=== PATIENT | male | born 1990 | race Caucasian/White ===

== ENCOUNTER 2017-03-12 17:06 | Inpatient (IN) | payer OTHER ==
[~2017-03-12] VITALS: Ht 177.8 cm; Wt 52.1 kg
[2017-03-12] MEDS ORDERED: PARO20TA4 PO (17:42)
[2017-03-12] MEDS ORDERED: ATIV1TAB7 PO (17:42)
[2017-03-12] MEDS ORDERED: NICOTINE 21MG/24HR 1 EA TRANSDERMAL TD ONE (17:45)
[2017-03-12 18:02] LABS: MEAN CORPUSCULAR HEMOGLOBIN 33.2 pg (27.0-33.0); MEAN CORPUSCULAR HGB CONC 35.5 g/dl (32.0-36.5); MEAN CORPUSCULAR VOLUME 93.5 fl (80.0-96.0); RED CELL DISTRIBUTION WIDTH 13.3 % (11.5-14.5); WHITE BLOOD COUNT 9.2 K/mm3 (4.0-10.0)
[2017-03-12 18:11] LABS: METHADONE URINE NEGATIVE (NEGATIVE)
[2017-03-12 18:23] LABS: ALBUMIN 4.2 GM/DL (3.2-5.2); ALBUMIN/GLOBULIN RATIO 1.17 (1.00-1.93); ALKALINE PHOSPHATASE 82 U/L (45-117); ALT/SGPT 25 U/L (12-78); ANION GAP 9 MEQ/L (8-16); AST/SGOT 21 U/L (15-37); BILIRUBIN,DIRECT 0.2 MG/DL (0.0-0.2); BILIRUBIN,TOTAL 0.4 MG/DL (0.2-1.0); BLOOD UREA NITROGEN 6 MG/DL (7-18); CARBON DIOXIDE LEVEL 27 MEQ/L (21-32); CHLORIDE LEVEL 109 MEQ/L (98-107); CREATININE FOR GFR 0.96 MG/DL (0.70-1.30); GLOMERULAR FILTRATION RATE > 60.0 (>60); GLUCOSE, FASTING 102 MG/DL (70-105); POTASSIUM SERUM 3.9 MEQ/L (3.5-5.1); SODIUM LEVEL 145 MEQ/L (136-145); TOTAL PROTEIN 7.8 GM/DL (6.4-8.2)
--- NOTE | 2017-03-12 19:14 | REP ---
REASON: Assess for foreign body. COMPARISON: None. FINDINGS: The joint spaces are symmetric and relatively well maintained. There is no evidence of acute fracture or destructive osseous lesion. There is no evidence of a radiopaque foreign body. IMPRESSION: Negative hand. Signed by Ponce Mclaughlin DO 03/12/2017 07:51 P
[2017-03-13] MEDS ORDERED: LORazepam 1 MG TAB PO STA (00:34)
[2017-03-13] MEDS ORDERED: traZODone 50 MG TAB PO PRN (07:45)
[2017-03-13] MEDS ORDERED: MAALOX 30 ML SUSP *UDC PO PRN (07:45)
[2017-03-13] MEDS ORDERED: MOM 30ML SUSPENSION UDC PO PRN (07:45)
[2017-03-13 09:02] VITALS: BP 150/98
[2017-03-13] MEDS: NICOTINE 21MG/24HR 1 EA TRANSDERMAL TD SCH (10:02)
[2017-03-13] MEDS: MULTIVITAMINS/MINERALS THERAP 1 TAB PO SCH (10:02)
[2017-03-13] MEDS: FOLIC ACID 1 MG TAB PO SCH (10:02)
[2017-03-13] MEDS: THIAMINE 100 MG TAB PO SCH ×2 (10:03→20:46)
[2017-03-13] MEDS: LORazepam 2 MG TAB PO PRN ×2 (10:09→14:53)
--- NOTE | 2017-03-13 11:07 | HPEPDOC ---
Medical History and Physical Date of Admission Mar 13, 2017 at 04:54 History and Physical PCP: Cira Rodriguez. ATTENDING: Dr. Al Huddleston HPI: 26yoM admitted to [facility] for unspecified depressive disorder, being medically examined today. States he has had chronic neck pain. No radiation of pain down the arms. No weakness, numbness, or tingling in upper extremities. No injury reported. He does not report low back pain. No weakness, numbness, or tingling in lower extremities. Denies any fevers, chills, weakness, fatigue, LUCAS , CP, SOB, cough, palpitations, abdominal pain, N/V/D or changes in bowel or bladder habits. 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 Illicit Drugs: Denies IV Drug Use: Denies Tattoos done unprofessionally: Denies FAMHX: Mother: Alive, well Father: Unknown Siblings: Alive, well Children: None Unexpected deaths due to medical reasons: None. ROS: As noted in HPI, otherwise 11pt ROS of systems reviewed and unremarkable. PE: GEN: 26 yo M, appears stated age. Well-nourished, well developed. No acute distress. Alert and oriented x 3. Pleasant, interactive. HEENT: Normocephalic, atraumatic. Pupils are equal, round, and reactive to light. Extraocular movements are intact. No nystagmus appreciated. Sclera are nonicteric. Conjunctiva without injection. Nose midline. Nasal turbinates without bogginess. EACs both patent BL. TMs both visualized and zamorano with good cone of light, no bulging or erythema. No facial asymmetry. Moist mucous membranes. Dentition fair. Pharynx pink and moist, no cobblestoning. Neck supple , trachea midline. No lymphadenopathy or thyromegaly appreciated. CHEST: Regular rate and rhythm, +S1, +S2 LUNGS: Clear to auscultation bilaterally. No wheezes, rales, or rhonchi. Breathing appears symmetric and easy. Patient is speaking in full sentences. No accessory muscle use. ABD: Round, soft, non-tender, non-distended. +Bowel sounds throughout. No rebound or guarding. No costovertebral angle tenderness. EXT: Pulses 2+ bilaterally dorsalis pedis and radial. No lower extremity edema appreciated. SKIN: [place], dry, warm. Capillary refill <2sec. No rashes. There are abrasions noted on the forearms and right hand. 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 One on his right hand is related to putting his hand through a window. There is an ecchymotic area on the left lower back which she states is from falling at work. NEURO: Alert and oriented x 3. Cranial nerves III-XII are intact. No focal deficits appreciated. There is no tenderness with palpation over the cervical spine however mild tenderness is noted in the paraspinal muscles bilaterally. EKG: Pending. A&P: 26yoM admitted to [facility] for unspecified depressive disorder 1. Psych. Plan per Psychiatry. Obtain baseline EKG to assure the safety of psychiatric medications as they can prolong the QT interval. 2. Nicotine dependence. Patch available. 3. Chronic neck pain. Check x-ray of cervical spine. Continue Tylenol 650 mg every 6 hours as needed. Apply Lidoderm patch daily as needed. 4. Follow up with PCP on discharge. 5. Abrasions bilateral forearms. Apply Bactroban twice a day as needed. Dry dressing as needed. 6. Staff member Lex present on exam. Vital Signs Vital Signs Date Time Temp Pulse Resp B/P (MAP) Pulse Ox O2 Delivery O2 Flow Rate FiO2 03/13/17 09:02 100 150/98 03/13/17 08:35 98.1 16 97 Room Air Laboratory Data Labs 24H Laboratory Tests 2 03/12/17 17:38: Anion Gap 9, Glomerular Filtration Rate > 60.0, Calcium Level 9.0, Aspartate Amino Transf (AST/SGOT) 21, Alanine Aminotransferase (ALT/SGPT) 25, Alkaline Phosphatase 82, Total Bilirubin 0.4, Direct Bilirubin 0.2, Total Protein 7.8, Albumin 4.2, Albumin/Globulin Ratio 1.17, Thyroid Stimulating Hormone (TSH) 0.440, Salicylates Level < 1.7L, Urine Amphetamines Screen NEGATIVE, Urine Benzodiazepines Screen NEGATIVE, Urine Opiates Screen NEGATIVE, Urine Methadone Screen NEGATIVE, Acetaminophen Level < 2.0L, Urine Barbiturates Screen NEGATIVE , Urine Phencyclidine Screen NEGATIVE, Urine Cocaine Metabolite Screen NEGATIVE , Urine Cannabinoids Screen NEGATIVE, Ethyl Alcohol Level 0.265H CBC/BMP Laboratory Tests 03/12/17 17:38 Red Blood Count 5.24, Mean Corpuscular Volume 93.5, Mean Corpuscular Hemoglobin 33.2 H, Mean Corpuscular Hemoglobin Concent 35.5, Red Cell Distribution Width 13.3 Home Medications Scheduled Paroxetine Hydrochloride (Paroxetine) 20 Mg Tab, 20 MG PO DAILY Scheduled PRN Lorazepam (Ativan) 1 Mg Tab, 1 MG PO BID PRN for ANXIETY Allergies Coded Allergies: No Known Allergies (Unverified , 03/12/17) Maria Luisa Conti Mar 13, 2017 11:07
[2017-03-13] MEDS: LIDOCAINE 5% (LIDODERM) PATCH TD SCH (12:16)
[2017-03-13] MEDS: MUPIROCIN 2% OINT 22 GM TUBE TOP SCH ×2 (12:19→20:46)
[2017-03-13 14:00] VITALS: BP 150/90
[2017-03-13] MEDS: PARoxetine 10MG TABLET PO SCH (14:53)
--- NOTE | 2017-03-13 19:12 | REP ---
CERVICAL SPINE COMPLETE: 03/13/2017. Clinical history: Chronic neck pain. Findings: Nine views are provided. No prior study. Findings: Slight loss of the normal lordosis on the neutral view. Flexion and extension views show excellent range of motion but no instability. The C1-2 relationships were normal. The dens and lateral masses align normally. AP view shows no torticollis. The foramina are adequate on the left side with obliquity limiting evaluation of the upper most foramina on the right side. The C4-5 and below foramina are ample. No compression deformity, disc space narrowing or destructive bone lesion seen. No prevertebral swelling. Impression: 1. Slight straightening of the spine but excellent range of motion and no instability. Nothing acute. Signed by Tomas Augustin MD 03/14/2017 08:47 A
[2017-03-13] MEDS: **NOTE PATIENT COMMENT** MISC XX SCH (20:46)
[2017-03-14 06:30] VITALS: BP 139/92
[2017-03-14] MEDS: NICOTINE 21MG/24HR 1 EA TRANSDERMAL TD SCH (09:14)
[2017-03-14] MEDS: MUPIROCIN 2% OINT 22 GM TUBE TOP SCH ×2 (09:14→22:41)
[2017-03-14] MEDS: FOLIC ACID 1 MG TAB PO SCH (09:15)
[2017-03-14] MEDS: THIAMINE 100 MG TAB PO SCH ×2 (09:15→22:40)
[2017-03-14] MEDS: MULTIVITAMINS/MINERALS THERAP 1 TAB PO SCH (09:15)
[2017-03-14] MEDS: PARoxetine 10MG TABLET PO SCH (09:15)
[2017-03-14] MEDS: LIDOCAINE 5% (LIDODERM) PATCH TD SCH (09:15)
[2017-03-14 11:06] VITALS: BP 132/88
[2017-03-14 12:53] VITALS: BP 142/87
[2017-03-14 12:55] VITALS: BP 142/87
[2017-03-14] MEDS: LORazepam 2 MG TAB PO PRN (12:55)
--- NOTE | 2017-03-14 13:21 | MHHPE ---
DATE OF ADMISSION: 03/13/2017 CURRENT MEDICATIONS: - Paxil 20 mg every morning - Ativan 1 mg twice a day as needed CHIEF COMPLAINT: Suicidal ideation and threats. HISTORY OF PRESENT ILLNESS: This is a 26-year-old white male living by himself. 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 He sent text messages to his landlord that he was going to kill himself. His mother was contacted and reports that he had made threats about walking into the espino with a knife and stabbing himself. Patient had been in a bad relationship, which recently broke up. Patient has been drinking heavily. His blood alcohol level is high at 0.265. Patient minimizes his alcohol consumption. Patient had broken a window recently injuring his right hand. The landlord went to his apartment and found dried blood all over the apartment. Aside from the recent breakup, he denies any other psychosocial stressors. 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 He claims his appetite recently is good. His weight is stable. His concentration is fine. His level of energy is good on the job. He does have difficulty sleeping over the past 2 weeks since the breakup. He reports his self-esteem is good. He does have a history of possible panic attacks diagnosed and treated by his primary care physician. He has been on Paxil since the Fall of 2015. Patient avoids caffeinated beverages. He denies history of obsessive compulsive disorder (OCD) or posttraumatic stress disorder (PTSD). He denies phobic behavior. Patient may have had social phobic symptoms, however as a child. Patient does admit to seeing a therapist "Delphine" but then admits that he cancelled multiple appointments with her and has seen her only once. PAST PSYCHIATRIC HISTORY: Patient has never been hospitalized before. He was treated for some type of anxiety disorder as a teenager but is vague about it. He claims he grew out of it. He was treated with Cymbalta as a teenager but he had a possible allergic reaction where he had shortness of breath and passed out. MEDICAL HISTORY: Patient is healthy. ALLERGIES TO MEDICATIONS: Possibly CYMBALTA. LEGAL HISTORY: Patient denies. CHEMICAL DEPENDENCY: Patient does consume alcohol and he minimizes his consumption. He denies history of blackouts, delirium tremens (DTs) or seizures , but may be consuming more than he volunteers. He has never been in alcohol rehabilitation before. FAMILY PSYCHIATRIC HISTORY: Patient denies. SOCIAL HISTORY: Patient was born in [place], raised in [place]. He is a high school graduate. He has no college. 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 Patient's mother is remarried and lives in [place]. His father abandoned the family when he was age 9, and patient has not seen him since. Patient has two half siblings. Relationship with them is good. MENTAL STATUS EXAMINATION: Patient is alert and oriented. He is highly anxious with sweaty palms. He reports history of panic attacks. He is mildly depressed. He denies currently being suicidal. He has no suicidal plan. Insight and judgment appear fair. He is not psychotic. He is not hearing voices. No paranoia or thought disorder. Grooming and hygiene appear good. DIAGNOSIS: Adjustment disorder with depressed mood. Rule out major depression. Panic/anxiety disorder. Alcohol use disorder. PLAN: [facility] Protocol, staff to make collateral phone contact with family, therapist, etc. Confirm [phone], etc. MTDD
[2017-03-14 18:00] VITALS: BP 172/94
--- NOTE | 2017-03-14 19:55 | ECGEPIP ---
Stationary ECG Study [facility] Test Date: 2017-03-13 Pat Name: PHILIPP TOLENTINO Department: Room: [place] [address] Gender: M Rn Mds: : 1990 Requested By: Maria Luisa Conti Order Number: [id number] Reading MD: Abigail Warren Measurements Intervals [place] Rate: 114 P: 82 TX: 168 QRS: 93 QRSD: 106 T: 68 QT: 319 QTc: 439 Interpretive Statements SINUS TACHYCARDIA BORDERLINE RIGHT AXIS DEVIATION ABNORMAL RHYTHM ECG NO PRIOR Electronically Signed On 03-14-2017 19:55:02 EDT by Abigail Warren
[2017-03-14 20:15] VITALS: BP 172/94
[2017-03-14] MEDS: **NOTE PATIENT COMMENT** MISC XX SCH (21:00)
[2017-03-14] MEDS: traZODone 100 MG TAB PO PRN (22:40)
[2017-03-15 06:21] VITALS: BP 104/58
[2017-03-15 08:31] VITALS: BP 104/58
[2017-03-15] MEDS: NICOTINE 21MG/24HR 1 EA TRANSDERMAL TD SCH (09:01)
[2017-03-15] MEDS: MULTIVITAMINS/MINERALS THERAP 1 TAB PO SCH (09:01)
[2017-03-15] MEDS: PARoxetine 10MG TABLET PO SCH (09:01)
[2017-03-15] MEDS: LIDOCAINE 5% (LIDODERM) PATCH TD SCH (09:01)
[2017-03-15] MEDS: THIAMINE 100 MG TAB PO SCH ×2 (09:01→20:58)
[2017-03-15] MEDS: FOLIC ACID 1 MG TAB PO SCH (09:01)
[2017-03-15] MEDS: MUPIROCIN 2% OINT 22 GM TUBE TOP SCH ×2 (09:01→20:59)
--- NOTE | 2017-03-15 11:24 | MHIPN ---
DATE: 03/13/2017 VITAL SIGNS: Temperature 98.4. Pulse 92. Respirations 16. Blood pressure 139/92. CURRENT MEDICATION: - Paxil 30 mg every morning - trazodone 50 mg at bedtime as needed for sleep - thiamine 100 mg twice a day - folic acid 1 mg daily - multivitamins one tablet daily HISTORY OF PRESENT ILLNESS: The patient continues to minimize the events prior to admission. 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 The patient is confronted as so his alcoholism. The patient has required Ativan per the [facility] detox protocol. His blood pressure is also quite elevated, likely secondary to his alcoholism. The patient admits that he does drink heavily. He is willing to followup at a chemical dependency evaluation upon discharge. The patient has received several doses of the increased dose of Paxil. He is tolerating it well. He did not sleep well last night. He tossed and turned a lot. The patient slept in this morning all morning and is not seen at all after 12 noon. We discussed increasing his trazodone dosage, which he is agreeable to. His mother had called in requesting that I contact her. The patient is agreeable. He gives me permission to do so. According to the staff member who took her message, she was afraid that we would discharge her son prematurely. She is concerned that he has a serious condition that needs further hospitalization and treatment for. MENTAL STATUS EXAMINATION: The patient is alert, oriented and cooperative. He does appear quite anxious and edgy. He is restless. He is dysphoric. Mood is moderately depressed. He denies current suicidal thoughts. Insight appears fair. Judgment appears fair. No signs of psychosis. No current signs of dangerousness. Memory functions appear intact. DIAGNOSES: Major depression, recurrent. Panic/anxiety disorder. Alcohol use disorder. PLAN: Continue medications and the milieu therapy. Increase trazodone to 100 mg at bedtime for sleep. The patient encouraged to not sleep all morning, but to active and involved in participating with group activities, etc. Continue [facility] protocol.
[2017-03-15] MEDS: LORazepam 1 MG TAB PO PRN ×2 (16:15→21:00)
[2017-03-15 18:00] VITALS: BP 119/67
[2017-03-15] MEDS: **NOTE PATIENT COMMENT** MISC XX SCH (20:58)
[2017-03-15] MEDS: traZODone 100 MG TAB PO PRN (20:58)
[2017-03-16 06:52] VITALS: BP 125/58
[2017-03-16] MEDS: MULTIVITAMINS/MINERALS THERAP 1 TAB PO SCH (08:09)
[2017-03-16] MEDS: MUPIROCIN 2% OINT 22 GM TUBE TOP SCH ×2 (08:09→21:01)
[2017-03-16] MEDS: FOLIC ACID 1 MG TAB PO SCH (08:09)
[2017-03-16] MEDS: NICOTINE 21MG/24HR 1 EA TRANSDERMAL TD SCH (08:09)
[2017-03-16] MEDS: PARoxetine 10MG TABLET PO SCH (08:09)
[2017-03-16] MEDS: THIAMINE 100 MG TAB PO SCH (08:10)
[2017-03-16] MEDS: LIDOCAINE 5% (LIDODERM) PATCH TD SCH (08:10)
[2017-03-16] MEDS: LORazepam 0.5 MG TAB PO PRN (14:13)
[2017-03-16 18:00] VITALS: BP 138/88
[2017-03-16] MEDS: traZODone 100 MG TAB PO PRN (21:00)
[2017-03-16] MEDS: **NOTE PATIENT COMMENT** MISC XX SCH (21:06)
[2017-03-16] MEDS: ACETAMINOPHEN TAB 650MG DOSE (2X325MG) PO PRN (21:06)
[2017-03-17 07:06] VITALS: BP 149/82
[2017-03-17] MEDS: MUPIROCIN 2% OINT 22 GM TUBE TOP SCH ×2 (08:06→21:00)
[2017-03-17] MEDS: FOLIC ACID 1 MG TAB PO SCH (08:06)
[2017-03-17] MEDS: PARoxetine 10MG TABLET PO SCH (08:06)
[2017-03-17] MEDS: MULTIVITAMINS/MINERALS THERAP 1 TAB PO SCH (08:06)
[2017-03-17] MEDS: LIDOCAINE 5% (LIDODERM) PATCH TD SCH (08:06)
[2017-03-17] MEDS: NICOTINE 21MG/24HR 1 EA TRANSDERMAL TD SCH (08:06)
[2017-03-17] MEDS: LORazepam 0.5 MG TAB PO PRN ×2 (12:28→17:20)
--- NOTE | 2017-03-17 14:34 | MHIPN ---
DATE: 03/13/2017 VITAL SIGNS: Temperature 97.4, pulse 68, respirations 16, blood pressure 104/58. CURRENT MEDICATIONS: -Paxil 30 mg every morning -trazodone 100 mg at bedtime as needed HISTORY OF PRESENT ILLNESS: Patient spent all morning in bed again. He is warned about this. He did go to a few groups yesterday evening. Patient again is agitating to get discharged so that he can go to [facility] weekend. This is a big green party scene and with his alcoholism history this would not be recommended. His mother had called in also supporting prolonging his hospital stay. Patient's blood pressure is starting to come down to a normal range. His appetite is good. He reports sleeping better at night. Patient states that his concentration is improving. Mental status exam. Anxiety is not in the moderate range. Depression and mild to moderate range. He is no suicidal, not homicidal. No signs of psychosis. Grooming and hygiene appears good. DIAGNOSES: Major depression, recurrent. Panic anxiety disorder. Alcohol use disorder. PLAN: Continue the current psychotropics. Patient encouraged to be involved with hospital therapeutic activities. Patient informed of my leaving the [facility] and there will be a new doctor taking over his care on Saturday.
[2017-03-17] MEDS: ACETAMINOPHEN TAB 650MG DOSE (2X325MG) PO PRN (17:21)
[2017-03-17 18:00] VITALS: BP 137/70
[2017-03-17] MEDS: **NOTE PATIENT COMMENT** MISC XX SCH (21:00)
[2017-03-17] MEDS: traZODone 100 MG TAB PO PRN (21:08)
[2017-03-18 06:25] VITALS: BP 124/68
--- NOTE | 2017-03-18 08:12 | MHIPN ---
DATE: 03/13/2017 CHIEF COMPLAINT: Says feels better. SUBJECTIVE: Seen for followup. Indicates feels better, and that he is less anxious, says inside "takes on life decisions", including following up with mental health. Denies any desires to drink, feels he is "done with it". MENTAL STATUS EXAMINATION: He is neat. He is cooperative. No agitation. No psychomotor retardation. Affect broad. Denies any thoughts of harming himself or anyone else. Currently no evidence of any psychosis. Cognition is grossly intact. Judgment and insight are fair. VITAL SIGNS: Blood pressure 125/58. Pulse 77. Temperature 97.9. PLAN: Continue current care and observations, including the Paxil at 30 mg daily. He tends to minimize his difficulties and has limited insight into his misuse of alcohol. He is to be encouraged to participate in activities in the unit per the recommendations made depending on the clinical picture.
[2017-03-18] MEDS: LIDOCAINE 5% (LIDODERM) PATCH TD SCH (08:57)
[2017-03-18] MEDS: NICOTINE 21MG/24HR 1 EA TRANSDERMAL TD SCH (08:57)
[2017-03-18] MEDS: MULTIVITAMINS/MINERALS THERAP 1 TAB PO SCH (08:58)
[2017-03-18] MEDS: FOLIC ACID 1 MG TAB PO SCH (08:58)
[2017-03-18] MEDS: MUPIROCIN 2% OINT 22 GM TUBE TOP SCH ×2 (08:58→21:15)
[2017-03-18] MEDS: PARoxetine 10MG TABLET PO SCH (08:58)
--- NOTE | 2017-03-18 16:51 | MHIPNPDOC ---
[facility] Progress Note Progress Note DATE OF SERVICE: 03/18/17 HISTORY: Patient was seen and evaluated for his progress in inpatient unit. He reported feeling better with the current treatment and has been able to participate in the unit activities and interacted with others in the unit. He denies feeling nervous or anxious recently and grades His depression as 2 out of 10 compared to 8 out of 10 when he was admitted to inpatient unit. He denies any suicidal or homicidal ideations, but seems to be minimizing his alcohol use. He did accept that when he drinks alcohol, He feels more down and starts thinking about suicidal ideas. He reported that the blood stains found in his apartment there because of injury to his hand that was not related to self- injurious behavior or any suicidal attempt. He reported that his ex-boyfriend was alcoholic and because of him. He also drank quite a bit, but after broken up with him, He wants to stop using alcohol. When offered to go for outpatient substance abuse treatment. He did accept that and he denies any other substance abuse. Sleeping and eating well. Denies any hallucinations or paranoia. VITAL SIGNS: See below. CURRENT MEDICATIONS: -Paxil 30 mg every morning -trazodone 100 mg at bedtime as needed MENTAL STATUS EXAMINATION: 26yo male sitting in the chair, looks appropriate for the stated age, fair hygiene and grooming, cold patch on the back of the neck, normal psychomotor activities, no abnormal movements, cooperative with fair eye contact, speech is normal in rate, rhythm, amount and prosody, mood is 'fine', affect full and mood congruent, thought process is logical and goal directed, denies suicidal and homicidal ideations, denies hallucinations, no delusions elicited, aaox3, fair immediate, short term and intermediate card tender memory, limited insight, judgement and fair impulse control DIAGNOSES: 1. Major depression versus alcohol-induced mood disorder. ASSESSMENT: Patient seems to be improving with current treatment. Discharge planning in progress MANAGEMENT PLAN: Possible increase in Paxil to optimize the dose. TIME SPENT: To 15 minutes. Vital Signs Vital Signs Date Time Temp Pulse Resp B/P (MAP) Pulse Ox O2 Delivery O2 Flow Rate FiO2 03/18/17 06:25 98.1 102 16 124/68 (86) Room Air 03/13/17 08:35 97 Current Medications Allergies Coded Allergies: No Known Allergies (Unverified , 03/12/17) HANNAH BLAKC MD Mar 18, 2017 16:51
[2017-03-18 18:00] VITALS: BP 144/86
[2017-03-18] MEDS: traZODone 100 MG TAB PO PRN (21:15)
[2017-03-18] MEDS: **NOTE PATIENT COMMENT** MISC XX SCH (21:15)
--- NOTE | 2017-03-18 21:45 | MHIPN ---
DATE: 03/17/2017 CHIEF COMPLAINT: Feels good. SUBJECTIVE: Seen for followup in the presence of staff. He says he feels good; in fact, suggests he feels "awesome" and that moods are good. He feels that he should return to work, says he finds himself restless when he is not working. Denies any cravings for alcohol or anything else. MENTAL STATUS EXAM: Neat and cooperative. He is coherent. No agitation. No psychomotor retardation. Affect is broad. He denies any thoughts of harming himself or anyone else. No evidence of any psychosis. Cognition is grossly intact. Judgment and insight are also improved. ASSESSMENT: Major depressive disorder. Alcohol use disorder. PLAN: Continue current care and observations, continue encouraging participation in frias activities. He will be seeing his assigned psychiatrist tomorrow, and the rest of the treatment team, and he was made aware that they will look at discharge planning. I anticipate him being discharged soon.
[2017-03-19 07:33] VITALS: BP 120/67
[2017-03-19] MEDS: NICOTINE 21MG/24HR 1 EA TRANSDERMAL TD SCH (08:11)
[2017-03-19] MEDS: PARoxetine 10MG TABLET PO SCH (08:11)
[2017-03-19] MEDS: LIDOCAINE 5% (LIDODERM) PATCH TD SCH (08:15)
[2017-03-19] MEDS: MULTIVITAMINS/MINERALS THERAP 1 TAB PO SCH (08:15)
[2017-03-19] MEDS: MUPIROCIN 2% OINT 22 GM TUBE TOP SCH ×2 (08:17→20:45)
[2017-03-19] MEDS: FOLIC ACID 1 MG TAB PO SCH (08:17)
[2017-03-19] MEDS: ACETAMINOPHEN TAB 650MG DOSE (2X325MG) PO PRN ×2 (16:30→22:38)
--- NOTE | 2017-03-19 17:49 | MHIPNPDOC ---
[facility] Progress Note Progress Note DATE OF SERVICE: 03/19/17 HISTORY: The patient was seen and evaluated for his progress in the inpatient unit. On evaluation, patient reported that he has been feeling better and denies any depression anymore. He reported that his anxiety is also under more control and has been sleeping better. He reported that after getting discharged from the inpatient unit. He is willing to go for outpatient substance use treatment and also willing to follow up for outpatient psychiatry treatment. He currently denies any suicidal or homicidal ideations. He also denies any anger, agitation or aggressive behavior. He is willing to work with the discharge planners to arrange for his follow-ups outpatient sleeping and eating well. VITAL SIGNS: See below. CURRENT MEDICATIONS: -Paxil 30 mg every morning -trazodone 100 mg at bedtime as needed MENTAL STATUS EXAMINATION: 26yo male sitting in the chair, looks appropriate for the stated age, fair hygiene and grooming, cold patch on the back of the neck, normal psychomotor activities, no abnormal movements, cooperative with fair eye contact, speech is normal in rate, rhythm, amount and prosody, mood is 'fine', affect full and mood congruent, thought process is logical and goal directed, denies suicidal and homicidal ideations, denies hallucinations, no delusions elicited, aaox3, fair immediate, short term and joint terminal attack controller memory, limited insight, judgement and fair impulse control DIAGNOSES: 1. Major depression versus alcohol-induced mood disorder. ASSESSMENT: Patient improving on current treatment. Discharge planning in progress MANAGEMENT PLAN:. Continue current treatment. TIME SPENT:. 15 minutes. Vital Signs Vital Signs Date Time Temp Pulse Resp B/P (MAP) Pulse Ox O2 Delivery O2 Flow Rate FiO2 03/19/17 07:33 98.2 77 16 120/67 (84) 03/18/17 06:25 Room Air 03/13/17 08:35 97 Allergies Coded Allergies: No Known Allergies (Unverified , 03/12/17) HANNAH BLACK MD Mar 19, 2017 17:48
[2017-03-19 18:00] VITALS: BP 128/82
[2017-03-19] MEDS: **NOTE PATIENT COMMENT** MISC XX SCH (20:46)
[2017-03-19] MEDS: traZODone 100 MG TAB PO PRN (22:06)
[2017-03-20 07:04] VITALS: BP 130/77
[2017-03-20] MEDS: LIDOCAINE 5% (LIDODERM) PATCH TD SCH (08:22)
[2017-03-20] MEDS: PARoxetine 10MG TABLET PO SCH (08:22)
[2017-03-20] MEDS: FOLIC ACID 1 MG TAB PO SCH (08:22)
[2017-03-20] MEDS: MULTIVITAMINS/MINERALS THERAP 1 TAB PO SCH (08:22)
[2017-03-20] MEDS: MUPIROCIN 2% OINT 22 GM TUBE TOP SCH (08:23)
[2017-03-20] MEDS: NICOTINE 21MG/24HR 1 EA TRANSDERMAL TD SCH (08:34)
[2017-03-20] MEDS ORDERED: TRAZ10TA PO (09:17)
[2017-03-20] MEDS ORDERED: FOLI1TAB4 PO (09:17)
[2017-03-20] MEDS ORDERED: PARO30TA3 PO (09:17)
[2017-03-20] MEDS ORDERED: VITMTA PO (09:17)
--- NOTE | 2017-03-20 09:29 | MHDSPDOC ---
[facility] Discharge Summary Discharge Summary DATE OF ADMISSION: Mar 13, 2017 at 04:54 DATE OF DISCHARGE: 03/20/17 DISCHARGE DIAGNOSES: 1. Major depression versus alcohol-induced mood disorder. 2.. Anxiety disorder. REASON FOR ADMISSION:, Suicide attempt, self-injurious behavior, depression, alcohol abuse from H&P: "HISTORY OF PRESENT ILLNESS: This is a 26-year-old white male living by himself. 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 He sent text messages to his landlord that he was going to kill himself. His mother was contacted and reports that he had made threats about walking into the [place] with a knife and stabbing himself. Patient had been in a bad relationship, which recently broke up. Patient has been drinking heavily. His blood alcohol level is high at 0.265. Patient minimizes his alcohol consumption. Patient had broken a window recently injuring his right hand. The landlord went to his apartment and found dried blood all over the apartment. Aside from the recent breakup, he denies any other psychosocial stressors. 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 He claims his appetite recently is good. His weight is stable. His concentration is fine. His level of energy is good on the job. He does have difficulty sleeping over the past 2 weeks since the breakup. He reports his self-esteem is good. He does have a history of possible panic attacks diagnosed and treated by his primary care physician. He has been on Paxil since the Fall of 2015. Patient avoids caffeinated beverages. He denies history of obsessive compulsive disorder (OCD) or posttraumatic stress disorder (PTSD). He denies phobic behavior. Patient may have had social phobic symptoms, however as a child. Patient does admit to seeing a therapist "Delphine" but then admits that he cancelled multiple appointments with her and has seen her only once. PAST PSYCHIATRIC HISTORY: Patient has never been hospitalized before. He was treated for some type of anxiety disorder as a teenager but is vague about it. He claims he grew out of it. He was treated with Cymbalta as a teenager but he had a possible allergic reaction where he had shortness of breath and passed out. MEDICAL HISTORY: Patient is healthy. ALLERGIES TO MEDICATIONS: Possibly CYMBALTA. LEGAL HISTORY: Patient denies. CHEMICAL DEPENDENCY: Patient does consume alcohol and he minimizes his consumption. He denies history of blackouts, delirium tremens (DTs) or seizures , but may be consuming more than he volunteers. He has never been in alcohol rehabilitation before. FAMILY PSYCHIATRIC HISTORY: Patient denies." CONSULTANTS INVOLVED: None TREATMENT AND PROGRESS ON THE UNIT :. Patient was admitted to inpatient psychiatry unit and started on CIWA protocol for alcohol withdrawal. He initially was minimizing all the symptoms but later reported that yes he was having blood stains in his apartment because he was bleeding and he was depressed recently with suicidal thoughts. Initially he was not able to participate in any of the unit activities that he responded well to treatment and able to participate in the activities as well as interact with others in the unit initially. He continued to have suicidal ideations, which faded away over the time. He continued to minimize his alcohol use, but was willing to go for any substance use treatment After the discharge for which he will be referred to outpatient substance abuse treatment programs. HOSPITAL COURSE: He was started on CIWA protocol for alcohol withdrawal, Paxil for his depression and anxiety and trazodone for his sleep problems. He was also receiving therapy and milieu treatment in the unit. MENTAL STATUS EXAMINATION ON DISCHARGE: Patient is alert and oriented. speech is normal in rate, rhythm, amount & prosody. He denies currently being suicidal. He has no suicidal plan. Insight and judgment appear fair. He is not psychotic. He denies hearing voices. No paranoia or thought disorder. Grooming and hygiene appear good. MEDICATIONS ON DISCHARGE: Paxil 30mg QAM & Trazodone 50mg QHS PRN for sleep problems. PLAN/FOLLOWUP ARRANGEMENTS: Patient to follow up outpatient for medication management and psychotherapy. Patient to be referred for outpatient substance use treatment. Also. The amount of time spent in the coordination of care for this patient was approximately, 30 minutes. Vital Signs/I&Os Vital Signs Date Time Temp Pulse Resp B/P (MAP) Pulse Ox O2 Delivery O2 Flow Rate FiO2 03/20/17 07:04 98.2 83 16 130/77 (94) 03/19/17 18:00 Room Air Medications Scheduled (Paroxetine) 30 Mg Tab, 30 MG PO QAM for depression anxiety for 30 Days, #30 Folic Acid (Folic Acid) 1 Mg Tab, 1 MG PO DAILY for deficiency for 30 Days, #30 Multivitamins *[facility] STOCKED* (Thera M Plus *[facility] STOCKED*) 1 Tab Tab, 1 TAB PO DAILY for deficiency for 30 Days, #30 Paroxetine Hydrochloride (Paroxetine) 20 Mg Tab, 20 MG PO DAILY, (Reported) Scheduled PRN Lorazepam (Ativan) 1 Mg Tab, 1 MG PO BID PRN for ANXIETY, (Reported) Trazodone HCl (Trazodone HCl) 100 Mg Tab, 100 MG PO QHSP PRN for INSOMNIA for 30 Days, #30 Allergies Coded Allergies: No Known Allergies (Unverified , 03/12/17) HANNAH BLACK MD Mar 20, 2017 09:29
== END 2017-03-20 11:20 | disposition home or self-care (01) | DRG 751 ==
LOC: M ED 17:06 → M ED INP 03-13 04:54 → M PSY 03-13 08:45
PROVIDERS: ADMIT Psychiatry & Neurology Psychiatry; ATTEND Psychiatry & Neurology Psychiatry
DX: F33.9 Major depressive disorder, recurrent, unspecified (principal); F41.9 Anxiety disorder, unspecified; F10.14 Alcohol abuse with alcohol-induced mood disorder; M54.2 Cervicalgia; Z63.0 Problems in relationship with spouse or partner; Z88.8 Allergy status to other drugs, medicaments and biological substances; Z79.899 Other long term (current) drug therapy

== ENCOUNTER 2017-03-21 08:08 | Emergency (ER) | payer OTHER ==
[~2017-03-21] VITALS: Ht 188 cm; Wt 56.8 kg
[~2017-03-21 08:08] MED LIST: ATIV1TAB7 PO; FOLI1TAB4 PO; PARO20TA4 PO; PARO30TA3 PO; TRAZ10TA PO; VITMTA PO
[2017-03-21 16:24] VITALS: BP 136/83
== END 2017-03-21 16:25 | disposition home or self-care (01) ==
LOC: EDSEX 08:08 → M ED 08:08 → EDBD 08:08 → M ED 16:25
DX: F10.120 Alcohol abuse with intoxication, uncomplicated (principal); R45.1 Restlessness and agitation; Z79.899 Other long term (current) drug therapy

== ENCOUNTER 2017-04-14 01:41 | Inpatient (IN) | payer OTHER ==
[~2017-04-14] VITALS: Ht 177.8 cm; Wt 56.8 kg
[2017-04-14 02:32] LABS: MEAN CORPUSCULAR HEMOGLOBIN 33.8 pg (27.0-33.0); MEAN CORPUSCULAR VOLUME 91.9 fl (80.0-96.0); RED CELL DISTRIBUTION WIDTH 12.3 % (11.5-14.5); WHITE BLOOD COUNT 5.5 K/mm3 (4.0-10.0)
[2017-04-14 02:48] LABS: METHADONE URINE NEGATIVE (NEGATIVE)
[2017-04-14 03:00] LABS: ALBUMIN 4.1 GM/DL (3.2-5.2); ALBUMIN/GLOBULIN RATIO 1.24 (1.00-1.93); ALKALINE PHOSPHATASE 70 U/L (45-117); ALT/SGPT 26 U/L (12-78); ANION GAP 4 MEQ/L (8-16); AST/SGOT 23 U/L (15-37); BILIRUBIN,DIRECT 0.1 MG/DL (0.0-0.2); BILIRUBIN,TOTAL 0.3 MG/DL (0.2-1.0); BLOOD UREA NITROGEN 5 MG/DL (7-18); CALCIUM LEVEL 8.6 MG/DL (8.5-10.1); CARBON DIOXIDE LEVEL 34 MEQ/L (21-32); CHLORIDE LEVEL 107 MEQ/L (98-107); CREATININE FOR GFR 0.88 MG/DL (0.70-1.30); GLOMERULAR FILTRATION RATE > 60.0 (>60); GLUCOSE, FASTING 113 MG/DL (70-105); SODIUM LEVEL 145 MEQ/L (136-145); TOTAL PROTEIN 7.4 GM/DL (6.4-8.2)
[2017-04-14 03:15] LABS: MEAN CORPUSCULAR HGB CONC 36.4 g/dl (32.0-36.5)
[2017-04-14] MEDS ORDERED: MULTIVITAMINS/MINERALS THERAP 1 TAB PO ONE (08:45)
[2017-04-14] MEDS ORDERED: FOLIC ACID 1 MG TAB PO ONE (08:45)
[2017-04-14] MEDS ORDERED: PARoxetine 10MG TABLET PO ONE (08:45)
[2017-04-14] MEDS ORDERED: OXAZEPAM 15 MG CAP PO ONE (14:15)
[2017-04-14] MEDS ORDERED: VITMTA PO (14:49)
[2017-04-14] MEDS ORDERED: PARO30TA PO (14:49)
[2017-04-14] MEDS ORDERED: TRAZ-136 PO (14:49)
[2017-04-14] MEDS ORDERED: FOLI1TAB4 PO (14:49)
[2017-04-14] MEDS ORDERED: MOM 30ML SUSPENSION UDC PO PRN (19:30)
[2017-04-14] MEDS ORDERED: MAALOX 30 ML SUSP *UDC PO PRN (19:30)
[2017-04-14] MEDS ORDERED: OXAZEPAM 15 MG CAP PO PRN (19:30)
[2017-04-14] MEDS: NICOTINE 21MG/24HR 1 EA TRANSDERMAL TD SCH (20:12)
[2017-04-14] MEDS: ACETAMINOPHEN TAB 650MG DOSE (2X325MG) PO PRN (21:21)
[2017-04-14] MEDS: traZODone 100 MG TAB PO PRN (21:21)
--- NOTE | 2017-04-15 04:17 | HPE ---
DATE OF ADMISSION: 04/14/2017 HISTORY OF PRESENT ILLNESS: Please refer to psychiatric history and evaluation for further details on this admission. This examination and history is intended for medical issues, which may need treatment, followup or consult on this 26-year-old male. ALLERGIES: No known drug allergies. PRIMARY CARE PROVIDER: He goes to the [facility]. PAST MEDICAL HISTORY: 1. Chronic neck pain. 2. Anxiety. 3. Depression. PAST SURGICAL HISTORY: Negative. SOCIAL HISTORY: He is single, works at a [employer] shop, very rarely wears shorts. He uses a vapor cigarette. He denies illicit drug use or intravenous (IV) drug use. FAMILY HISTORY: Mother alive and well. Father unknown. Siblings alive and well. Children unknown. REVIEW OF SYSTEMS: 10-system review was done and other than chronic back pain was negative. Patient had no complaints. LABORATORY STUDIES: WBC 5.5, hemoglobin 16.9, hematocrit 46.4, platelets 224. Sodium 145, potassium 4.0, chloride 107, CO2 34, BUN 5, creatinine 0.88. Ethyl alcohol (EtOH) was 0.283. MEDICATIONS: - folic acid 1 mg by mouth daily - Multivite one daily - paroxetine 30 mg by mouth daily - trazodone 100 mg by mouth daily PHYSICAL EXAMINATION: 26-year-old cooperative male in no acute distress. Blood pressure stable. Height 70 inches, weight 56.8 kg, body mass index (BMI) 18. In no acute distress. Vital signs are stable. Patient is alert and oriented times three. Pupils equal and react to light. Extraocular muscles intact. Cornea and sclerae clear. Conjunctivae were normal. No facial asymmetry. Pharynx, tongue and gums pink and moist. Tongue is midline. Neck is supple without lymphadenopathy. No thyromegaly, no goiter. Carotids 2+ without bruit. Chest clear to auscultation without wheeze or retraction. Heart is regular. Abdomen is benign. Bowel sounds positive. Genitourinary/rectal: Not done. Extremities show equal strength, full range of motion. No cyanosis, clubbing or edema. Peripheral pulses equal and palpable bilaterally. Skin is warm and dry. IMPRESSION/PLAN: Psychiatric plan per psychiatry. No acute medical issues.
[2017-04-15 06:37] VITALS: BP 122/64
[2017-04-15] MEDS: FOLIC ACID 1 MG TAB PO SCH (08:10)
[2017-04-15] MEDS: MULTIVITAMINS/MINERALS THERAP 1 TAB PO SCH (08:10)
[2017-04-15] MEDS: NICOTINE 21MG/24HR 1 EA TRANSDERMAL TD SCH (08:11)
[2017-04-15] MEDS: PARoxetine 10MG TABLET PO SCH (08:11)
[2017-04-15 12:01] VITALS: BP 141/94
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
[2017-04-15 18:00] VITALS: BP 140/83
[2017-04-15] MEDS: ACETAMINOPHEN TAB 650MG DOSE (2X325MG) PO PRN (18:28)
[2017-04-15] MEDS: traZODone 100 MG TAB PO PRN (22:24)
[2017-04-16 06:25] VITALS: BP 104/58
[2017-04-16] MEDS: NICOTINE 21MG/24HR 1 EA TRANSDERMAL TD SCH (08:34)
[2017-04-16] MEDS: FOLIC ACID 1 MG TAB PO SCH (08:34)
[2017-04-16] MEDS: PARoxetine 10MG TABLET PO SCH (08:34)
[2017-04-16] MEDS: MULTIVITAMINS/MINERALS THERAP 1 TAB PO SCH (08:34)
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
[2017-04-16 12:00] VITALS: BP 131/80
[2017-04-16] MEDS: ACETAMINOPHEN TAB 650MG DOSE (2X325MG) PO PRN ×2 (15:53→22:33)
[2017-04-16 18:00] VITALS: BP 119/65
[2017-04-16] MEDS: traZODone 100 MG TAB PO PRN (22:32)
[2017-04-17 06:49] VITALS: BP 98/56
[2017-04-17] MEDS: PARoxetine 10MG TABLET PO SCH (08:34)
[2017-04-17] MEDS: NICOTINE 21MG/24HR 1 EA TRANSDERMAL TD SCH (08:34)
[2017-04-17] MEDS: FOLIC ACID 1 MG TAB PO SCH (08:34)
[2017-04-17] MEDS: MULTIVITAMINS/MINERALS THERAP 1 TAB PO SCH (08:34)
[2017-04-17] MEDS ORDERED: TRAZ10TA PO (09:19)
[2017-04-17] MEDS ORDERED: PARO30TA PO (09:19)
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
== END 2017-04-17 13:15 | disposition home or self-care (01) | DRG 754 ==
LOC: M ED 01:41 → M ED INP 15:53 → M PSY 17:49
PROVIDERS: ADMIT Psychiatry & Neurology Psychiatry; ATTEND Psychiatry & Neurology Child & Adolescent Psychiatry
DX: F43.21 Adjustment disorder with depressed mood (principal); F10.129 Alcohol abuse with intoxication, unspecified; Z79.899 Other long term (current) drug therapy; M54.2 Cervicalgia

== ENCOUNTER 2017-08-13 23:13 | Emergency (ER) | payer OTHER ==
[2017-08-14 01:25] LABS: AMPHETAMINES LEVEL URINE NEGATIVE (NEGATIVE); BARBITURATES URINE NEGATIVE (NEGATIVE); BENZODIAZEPINES URINE NEGATIVE (NEGATIVE); CANNABINOIDS URINE NEGATIVE (NEGATIVE); COCAINE METABOLITE URINE NEGATIVE (NEGATIVE); METHADONE URINE NEGATIVE (NEGATIVE); OPIATES URINE NEGATIVE (NEGATIVE); PHENCYCLIDINE URINE NEGATIVE (NEGATIVE)
[2017-08-14 01:29] LABS: HEMATOCRIT 49.1 % (42.0-52.0); HEMOGLOBIN 17.9 g/dl (14.0-18.0); MEAN CORPUSCULAR HEMOGLOBIN 32.8 pg (27.0-33.0); MEAN CORPUSCULAR HGB CONC 36.5 g/dl (32.0-36.5); MEAN CORPUSCULAR VOLUME 89.9 fl (80.0-96.0); PLATELET COUNT, AUTOMATED 256 10^3/uL (150-450); RED BLOOD COUNT 5.46 10^6/uL (4.30-6.10); RED CELL DISTRIBUTION WIDTH 12.5 % (11.5-14.5); WHITE BLOOD COUNT 6.6 10^3/uL (4.0-10.0)
[2017-08-14 01:52] LABS: ALT/SGPT 40 U/L (12-78); ANION GAP 8 MEQ/L (8-16); CALCIUM LEVEL 8.6 MG/DL (8.5-10.1); CARBON DIOXIDE LEVEL 31 MEQ/L (21-32); CHLORIDE LEVEL 107 MEQ/L (98-107); CREATININE FOR GFR 0.93 MG/DL (0.70-1.30); GLOMERULAR FILTRATION RATE > 60.0 (>60); GLUCOSE, FASTING 128 MG/DL (70-105); SODIUM LEVEL 146 MEQ/L (136-145)
[2017-08-14 01:53] LABS: ACETAMINOPHEN LEVEL < 2.0 UG/ML (10.0-30.0); ALBUMIN 4.5 GM/DL (3.2-5.2); ALBUMIN/GLOBULIN RATIO 1.36 (1.00-1.93); ALKALINE PHOSPHATASE 95 U/L (45-117); ETHYL ALCOHOL (ETHANOL) 0.383 % (0.000-0.010); SALICYLATE LEVEL < 1.7 MG/DL (5.0-30.0); THYROID STIMULATING HORMONE 0.857 uIU/ML (0.358-3.740); TOTAL PROTEIN 7.8 GM/DL (6.4-8.2)
[2017-08-14 01:59] LABS: BLOOD UREA NITROGEN 9 MG/DL (7-18)
[2017-08-14 02:02] LABS: AST/SGOT 75 U/L (7-37); BILIRUBIN,DIRECT 0.2 MG/DL (0.0-0.2); BILIRUBIN,TOTAL 0.5 MG/DL (0.2-1.0)
[2017-08-14] MEDS: DERMABOND TOPICAL SKIN ADHESIVE TOP (02:52)
[2017-08-14] MEDS: NICOTINE 21MG/24HR 1 EA TRANSDERMAL TD (09:20)
== END 2017-08-14 12:15 | disposition home or self-care (01) ==
LOC: M ED 23:13
DX: Z04.6 Encounter for general psychiatric examination, requested by authority (principal); F10.129 Alcohol abuse with intoxication, unspecified; S01.81XA Laceration without foreign body of other part of head, initial encounter; X58.XXXA Exposure to other specified factors, initial encounter; Y92.89 Other specified places as the place of occurrence of the external cause; Z87.891 Personal history of nicotine dependence; F33.9 Major depressive disorder, recurrent, unspecified
CPT/HCPCS: 70450

== ENCOUNTER 2021-07-07 12:51 | Emergency (ER) | payer OTHER ==
[~2021-07-07] VITALS: Ht 177.8 cm; Wt 54.5 kg
[2021-07-07 12:53] VITALS: BP 121/69
--- OUTSIDE RECORDS SUMMARY | 2021-07-07 13:04 | CCD ---
Author Author [facility] Organization [facility] Address Unknown Phone Unavailable Care Team Providers Care Rug Dyer Name Role Phone KEILA GASTELUM Unavailable Unavailable Pietro AMBROCIO MD Unavailable Unavailable Pietro AMBROCIO MD Unavailable Unavailable Pietro AMBROCIO MD Unavailable Unavailable Pietro AMBROCIO MD Unavailable Unavailable Pietro AMBROCIO MD Unavailable Unavailable Pietro AMBROCIO MD Unavailable Unavailable Pietro AMBROCIO MD Unavailable Unavailable Pietro AMBROCIO MD Unavailable Unavailable Pietro AMBROCIO MD Unavailable Unavailable Pietro AMBROCIO MD Unavailable Unavailable Pietro AMBROCIO MD Unavailable Unavailable Pietro AMBROCIO MD Unavailable Unavailable Pietro AMBROCIO MD Unavailable Unavailable Pietro AMBROCIO MD Unavailable Unavailable Pietro AMBROCIO MD Unavailable Unavailable Pietro AMBROCIO MD Unavailable Unavailable Pietro AMBROCIO MD Unavailable Unavailable Pietro AMBROCIO MD Unavailable Unavailable Pietro AMBROCIO MD Unavailable Unavailable Pietro AMBROCIO MD Unavailable Unavailable Pietro AMBROCIO MD Unavailable Unavailable MEPietro TURPIN MD Unavailable Unavailable MEPietro TURPIN MD Unavailable Unavailable MEJIPietro REYNOSO MD Unavailable Unavailable MEPietro TURPIN MD Unavailable Unavailable MEJIPietro REYNOSO MD Unavailable Unavailable MEJIPietro REYNOSO MD Unavailable Unavailable MEJIPietro REYNOSO MD Unavailable Unavailable MEPietro TURPIN MD Unavailable Unavailable MEJIPietro REYNOSO MD Unavailable Unavailable MEPietro TURPIN MD Unavailable Unavailable MEPietro TURPIN MD Unavailable Unavailable MEPietro TURPIN MD Unavailable Unavailable MEJIPietro REYNOSO MD Unavailable Unavailable MEPietro TURPIN MD Unavailable Unavailable MEPietro TURPIN MD Unavailable Unavailable MEPietro TURPIN MD Unavailable Unavailable MEPietro TURPIN MD Unavailable Unavailable MEPietro TURPIN MD Unavailable Unavailable MEPietro TURPIN MD Unavailable Unavailable MEPietro TURPIN MD Unavailable Unavailable MEPietro TURPIN MD Unavailable Unavailable MEPietro TURPIN MD Unavailable Unavailable MEPietro TURPIN MD Unavailable Unavailable MEPietro TURPIN MD Unavailable Unavailable MEPietro TURPIN MD Unavailable Unavailable MEPietro TURPIN MD Unavailable Unavailable MEPietro TURPIN MD Unavailable Unavailable MEPietro TURPIN MD Unavailable Unavailable MEPietro TURPIN MD Unavailable Unavailable MEPietro TURPIN MD Unavailable Unavailable MEPietro TURPIN MD Unavailable Unavailable MEPietro TURPIN MD Unavailable Unavailable MEPietro TURPIN MD Unavailable Unavailable MEPietro TURPIN MD Unavailable Unavailable MEPietro TURPIN MD Unavailable Unavailable Pietro AMBROCIO MD Unavailable Unavailable MEPietro TURPIN MD Unavailable Unavailable MEPietro TURPIN MD Unavailable Unavailable MEPietro TURPIN MD Unavailable Unavailable MEPietro TURPIN MD Unavailable Unavailable MEPietro TURPIN MD Unavailable Unavailable MEPietro TURPIN MD Unavailable Unavailable MEPietro TURPIN MD Unavailable Unavailable MEPietro TURPIN MD Unavailable Unavailable MEPietro TURPIN MD Unavailable Unavailable MEPietro TURPIN MD Unavailable Unavailable MEPietro TURPIN MD Unavailable Unavailable MEPietro TURPIN MD Unavailable Unavailable MEPietro TURPIN MD Unavailable Unavailable MEPietro TURPIN MD Unavailable Unavailable Re-disclosure Warning The records that you are about to access may contain information from federally-assisted alcohol or drug abuse programs. If such information is present, then the following federally mandated warning applies: This information has been disclosed to you from records protected by federal confidentiality rules (42 CFR part 2). The federal rules prohibit you from making any further disclosure of this information unless further disclosure is expressly permitted by the written consent of the person to whom it pertains or as otherwise permitted by 42 CFR part 2. A general authorization for the release of medical or other information is NOT sufficient for this purpose. The Federal rules restrict any use of the information to criminally investigate or prosecute any alcohol or drug abuse patient.The records that you are about to access may contain highly sensitive health information, the redisclosure of which is protected by Article 27-F of the [facility] Public Health law. If you continue you may have access to information: Regarding HIV / AIDS; Provided by facilities licensed or operated by the [facility] Office of Mental Health; or Provided by the [facility] Office for People With Developmental Disabilities. If such information is present, then the following [facility] mandated warning applies: This information has been disclosed to you from confidential records which are protected by state law. State law prohibits you from making any further disclosure of this information without the specific written consent of the person to whom it pertains, or as otherwise permitted by law. Any unauthorized further disclosure in violation of state law may result in a fine or alf sentence or both. A general authorization for the release of medical or other information is NOT sufficient authorization for further disc losure. Encounters Encounter Providers Location Date Indications Data Source(s ) Outpatient Attender: JULI AMBROCIO MD 09/29/2020 12:00:[address] [facility] Emergency Attender: NOREEN GASTELUM EMERGENCY ROOM-ER 2019 08:10:00 PM EDT - 05/14/2020 08:28:00 PM EDT [facility] Patient discharged. Immunizations Vaccine Date Status Description Data Source(s) COVID-19 VACCINE Moderna 12/15/2020 12:00:00 AM EDT completed [employer] Vaccine Series Complete: YESThis Data wa s Submitted to [facility] Via [employer]. COVID-19 VACCINE Carleen 12/15/2020 12:00:00 AM EDT completed [employer] Vaccine Series Complete: YESThis Data wa s Submitted to [facility] Via [employer]. Medications No Information Insurance Providers Payer name Policy type / Coverage type Policy ID Covered libertarian ID Covered libertarian's relationship to warren Policy Warren Plan Information BR[employer]ARE [id number] S [id number] [employer]ARE [id number] S [id number] [employer]ARE [id number] S [id number] BRANDON [facility] 22 [id number] Self [id number] BRANDON [facility] 22 [id number] Self [id number] BRANDON CARE MEDICAID [id number] S [id number] BRANDON [facility] 22 [id number] Self [id number] BRANDON [facility] Brandon [id number] SELF PAY SP [id number] S [id number] MEDICAID [id number] S [id number] SELF-PAY UNAVAILABLE UNAVAILA BLE BLUE CROSS [id number] BRANDON [id number] SP [id number] BLUE CROSS [id number] STEPAR [id number] BLUE CROSS [id number] S [id number] SELF-PAY [id number] S [id number] WORKERS COMPENSATION [id number] S [id number] BRANDON [id number] SP [id number] NON [facility] Other ANS-Medicaid [id number] ANSI-Medicaid [id number] BR[facility]ON [facility] [id number] S [id number] BR[employer]ON CARE MEDICAID MCD HMO [id number] S [id number] BR[employer] MEDICAID MCD HMO [id number] S [id number] MEDICAID MCD [id number] S [id number] Problems, Conditions, and Diagnoses Code Display Name Description Problem Type Effective Dates Data Source(s) Z79.899 Other residential (current) 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 therapy 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 Diagnosis 05/14/2020 08:10:00 PM [facility] Z53.20 Procedure and treatment not carried out because of patient's decision for unspecified reasons PROC/TRTMT NOT CRD OUT BEC PT DECISION FOR UNSP RE [place] gnosis 05/14/2020 08:10:00 PM [facility] I10 Essential (primary) hypertension ESSENTIAL (PRIMARY) H YPERTENSION Diagnosis 05/14/2020 08:10:00 PM [facility] F17.210 Nicotine dependence, cigarettes, uncompl icated NICOTINE DEPENDENCE, CIGARETTES, UNCOMPLICATED Diagnosis 05/14/2020 08:10:00 PM [facility] R10.84 Generalized abdominal pain GENERALIZED ABDOMINAL PAIN Diagnosis 05/14/2020 08:10:00 PM [facility] Surgeries/Procedures No Information Results ID Date Data Source [id number] 01/03/2021 12:00:00 AM [facility] Name Value Range Interpretation Code Description Data Rosa rce(s) Supporting Document(s) SARS-CoV2 Rapid Antigen Negative [facility] This lab was ordered by [facility] and reported by [facility]. ID Date Data Source [id number] 05/16/2020 09:33:00 AM [facility] Patient: PHILIPP TOLENTINO Observation Re port - [facility].VisitID: [id number] [place] [address] [phone], MRegistration Date/Time: 05/14/2020 19:32 Weight:53.5 kg (S). Height/Length:70 inches (S). BMI:16.9 FAMILY HISTORYNo significant family medical history. (Electronically signed by Noreen Gastelum M.D. 05/14/2020 20:29) Addenda for PHILIPP TOLENTINO VisitID: [id number] Date: 05/14/2020 05/16/2020 9:25LWBS/LWBT/AMA??? follow-up Spoke with pt via telephone. Pt reports that he is feeling better. Pt also reports that he quit his job. Pt advised to return to the ED as needed and agrees. (Electronically signed by Padmaja Dixon 05/16/2020 9:25) Name Value Range Interpretation Code Description Data Rosa rce(s) Supporting Document(s) ID Date Data Source [id number] 05/14/2020 08:32:00 PM EDT [facility] Patient: PHILIPP TOLENTINO Re port - [facility].VisitID: [id number] [place] [address] [phone], MRegistration Date/Time: 05/14/2020 19:32 Weight:53.5 kg (S). Height/Length:70 inches (S). BMI:16.9 FAMILY HISTORYNo significant family medical history. (Electronically signed by Noreen Gastelum M.D. 05/14/2020 20:29) Name Value Range Interpretation Code Description Data Rosa rce(s) Supporting Document(s) ID Date Data Source [id number] 05/17/2020 08:11:00 AM EDT [facility] Name Value Range Interpretation Code Description Data [facility] rce(s) Supporting Document(s) HEP A AB, IGM Negative Negative [facility] HEP B SURFACE ANTIGEN SCREEN Negative Negative [facility] HEP B CORE AB, IGM Negative Negative [facility] HCV ANTIBODY <0.1 0.0-0.9 [facility] INFCE Result Units: s/co ratio Negative: < 0.8 Indeterminate: 0.8 - 0.9 Positive: > 0.9 The CDC recommends that a positive HCV antibody result be followed up with a HCV Nucleic Acid Amplification test ([id number]).Performed at: RN - [facility] [address] [id number] Director: Sepideh Villareal MD, Phone: [phone] ID Date Data Source [id number] 05/17/2020 08:06:00 AM EDT [facility] Name Value Range Interpretation Code Description Data Rosa rce(s) Supporting Document(s) Hep A Ab, IgM Negative Negative [facility] HBsAg Screen Negative Negative [facility] Hep B Core Ab, IgM Negative Negative [facility] Hep C Virus Ab 0.0-0.9 [facility] Negative: < 0.8 Indeterminate: 0.8 - 0.9 Positive: > 0.9 The CDC recommends that a positive HCV antibody result be followed up with a HCV Nucleic Acid Amplification test (803622). ID Date Data Source [id number] 05/14/2020 08:00:00 PM EDT [facility] TSYSORDER [id number] Name Value Range Interpretation Code Description Data Rosa rce(s) Supporting Document(s) HIV 1/2 AB NON-REACTIVE [facility] HIV AG NON-REACTIVE [facility] ID Date Data Source [id number] 05/14/2020 08:37:00 PM EDT [facility] TSYSORDER [id number] Name Value Range Interpretation Code Description Data Rosa rce(s) Supporting Document(s) GLUCOSE 124 mg/dL 74-106 H [facility] BLOOD UREA NITROGEN 4 mg/dL 7-18 L [facility] ital CREATININE 0.8 mg/dL 0.7-1.3 [facility] SODIUM 141 mmol/L 136-145 [facility] POTASSIUM 3.8 mmol/L 3.5-5.1 [facility] CHLORIDE 103 mmol/L 98-107 [facility] CO2 27 mmol/L 21-32 [facility] CALCIUM 8.9 mg/dL 8.5-10.1 [facility] ANION GAP 11.0 mmol/L 5-12 [facility] GLOMERULAR FILTRATION RATE >90 mL/min [facility] GFR IS CALCULATED IN mL/min/1.73m2 BENNY L FUNCTION: >90MILDLY DECREASED: 60-89MILDY TO MODERATELY DECREASED: 45-59 MODERATELY TO SEVERELY DECREASED: 30-44SEVERELY DECREASED: 15-29RENAL FAILURE: <15 AST 434 U/L 15-37 *H [facility] ALT 207 U/L 12-78 *H [facility] ALKALINE PHOSPHATASE 192 U/L 46-116 H [facility] pital TOTAL BILIRUBIN 0.6 mg/dL 0.2-1.0 [facility] TOTAL PROTEIN 7.5 g/dl 6.4-8.2 [facility] ALBUMIN 4.1 gm/dL 3.4-5.0 [facility] ID Date Data Source [id number] 05/14/2020 08:10:00 PM EDT [facility] TSYSORDER [id number] Name Value Range Interpretation Code Description [facility]) WHITE BLOOD COUNT 6.2 K/mm3 4.0-10.0 [facility] RED [facility]LOOD COUNT 5.08 M/mm3 4.50-6.00 [facility] HEMOGLOBIN 17.4 gm/dL 14.0-18.0 [facility] HEMATOCRIT 50.1 % 42.0-54.0 [facility] MEAN CELL VOLUME 98.6 fl 80-96 H [facility] MEAN CORPUSCULAR HEMOGLOBIN 34.3 pg 27.0-31.0 H [facility] MEAN CORPUSCULAR HGB CONC 34.7 g/dl 32.0-36.0 [facility] RED CELL DISTRIBUTION WIDTH 14.1 % 10.0-14.5 [facility] PLATELET COUNT 191 K/mm3 172-450 [facility] MEAN PLATELET VOLUME 10.2 fl 9.0-13.0 [facility] pital GRAN % 56.3 % 50-80.0 [facility] IG% 0.0 % 0.0-0.2 [facility] LYMPH % 30.8 % 25.0-50.0 [facility] MONO % 10.9 % 2.0-10.0 H [facility] EOS % 1.4 % 0-5.0 [facility] BASO % 0.6 % 0.0-2.0 [facility] GRAN # 3.5 K/mm3 2.0-8.00 [facility] IG# 0.0 K/mm3 0.0-0.2 [facility] LYMPH # 1.9 K/mm3 1.0-5.0 [facility] MONO # 0.7 K/mm3 0.10-1.20 [facility] EOS # 0.1 K/mm3 0.0-0.5 [facility] BASO # 0.0 K/mm3 0.0-0.2 [facility] Procedure Social History No Information
--- OUTSIDE RECORDS SUMMARY | 2021-07-07 14:04 | CCD ---
Author Author [facility] Organization [facility] Address Unknown Phone Unavailable Care Team Providers Care Shovel Engineer Name Role Phone KEILA GASTELUM Unavailable Unavailable [...] is protected by Article 27-F of the [facility] Public Health law. If you continue you may have access to information: Regarding HIV / AIDS; Provided by facilities licensed or operated by the [facility] Office of Mental Health; or Provided by the [facility] Office for People With Developmental Disabilities. If such information is present, then the following [facility] mandated warning applies: This information has been [...] law may result in a fine or snf sentence or both. A general authorization for the release of medical or other information is NOT sufficient authorization for further disc losure. Encounters Encounter Providers Location Date Indications Data Source(s ) Outpatient Attender: JULI AMBROCIO MD 09/29/2020 12:00:00 AM [facility] Emergency Attender: NOREEN GASTELUM EMERGENCY ROOM-ER 2019 08:10:00 PM EDT - 05/14/2020 08:28:00 PM EDT [facility] Patient discharged. Immunizations Vaccine Date Status Description Data Source(s) COVID-19 VACCINE Moderna 12/15/2020 12:00:00 AM EDT completed [employer]SIIS Vaccine Series Complete: YESThis Data wa s Submitted to [facility] Via [employer]. COVID-19 VACCINE Carleen 12/15/2020 12:00:00 AM EDT completed NYSIIS Vaccine Series Complete: YESThis Data wa s Submitted to [facility] Via NYSIIS. Medications No Information Insurance Providers Payer name Policy type / Coverage type Policy ID Covered constitution party ID Covered constitution party's relationship to warren Policy Warren Plan Information BRANDON CARE [id number] S [id number] BRANDON CARE [id number] S [id number] BRANDON CARE [id number] S [id number] BRANDON [facility] 22 [id number] Self [id number] BRANDON [facility] 22 [id number] Self [id number] BRANDON CARE MEDICAID [id number] S [id number] BRANDON [facility] 22 [id number] Self [id number] BRANDON [facility] Brandon [id number] SELF PAY SP [id number] S [id number] MEDICAID [id number] S [id number] SELF-PAY UNAVAILABLE UNAVAILA BLE BLUE CROSS [id number] M [id number] BRANDON [id number] SP [id number] BLUE CROSS [id number] STEPAR [id number] BLUE CROSS [id number] S [id number] SELF-PAY [id number] S [id number] WORKERS COMPENSATION [id number] S [id number] BRANDON [id number] SP [id number] 000 [id number] NON [facility] [employer] Other ANS-Medicaid [id number] ANSI-Medicaid [id number] BRANDON CARE [facility] [id number] S [id number] BRANDON CARE MEDICAID MCD HMO [id number] S [id number] BR[employer]ON CARE MEDICAID MCD HMO [id number] S [id number] MEDICAID MCD [id number] S [id number] Problems, Conditions, and Diagnoses Code Display Name Description Problem Type Effective Dates Data Source(s) Z79.899 Other half-way (current) drug therapy 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 Z53.20 Procedure and treatment not carried out because of patient's decision for unspecified reasons PROC/TRTMT NOT CRD OUT BEC PT DECISION FOR UNSP RE [place] gnosis 05/14/2020 08:10:[address] [facility] I10 Essential (primary) hypertension ESSENTIAL (PRIMARY) H YPERTENSION Diagnosis 05/14/2020 08:10:[address] [facility] F17.210 Nicotine dependence, cigarettes, uncompl icated NICOTINE DEPENDENCE, CIGARETTES, UNCOMPLICATED Diagnosis 05/14/2020 08:10:00 PM [facility] R10.84 Generalized abdominal pain GENERALIZED ABDOMINAL PAIN Diagnosis 05/14/2020 08:10:[address] [facility] Surgeries/Procedures No Information Results ID Date Data Source [id number] 01/03/2021 12:00:00 AM [facility]T [facility] Name Value Range Interpretation Code Description Data Rosa rce(s) Supporting Document(s) SARS-CoV2 Rapid Antigen Negative [facility] This lab was ordered by [facility] and reported by [facility]. ID Date Data Source [id number] 05/16/2020 09:33:[address] [facility] Patient: PHILIPP TOLENTINO Observation Re port - [facility] [employer] [facility].VisitID: [id number] [place] [address] [phone], MRegistration Date/Time: 05/14/2020 19:32 Weight:53.5 kg (S). Height/Length:70 inches (S). BMI:16.9 FAMILY HISTORYNo significant family medical history. (Electronically signed by Noreen Gastelum M.D. 05/14/2020 20:29) Addenda for PHILIPP TOLENTINO VisitID: [id number] Date: 05/14/2020 05/16/2020 9:25LWBS/LWBT/AMA??? follow-up Spoke with pt via telephone. Pt reports that he is feeling better. Pt also reports that he quit his job. Pt advised to return to the ED as needed and agrees. (Electronically signed by Padmaja Dixon 05/16/2020 9:25) Name Value Range Interpretation Code Description Data Rosa rce(s) Supporting Document(s) ID Date Data Source [id number] 05/14/2020 08:32:00 PM EDT [facility] Patient: PHIILPP TOLENTINO Re port - [facility].VisitID: [id number] [place] [address] [phone], MRegistration Date/Time: 05/14/2020 19:32 Weight:53.5 kg (S). Height/Length:70 inches (S). BMI:16.9 FAMILY HISTORYNo significant family medical history. (Electronically signed by Noreen Gastelum M.D. 05/14/2020 20:29) Name Value Range Interpretation Code Description Data Rosa rce(s) Supporting Document(s) ID Date Data Source [id number] 05/17/2020 08:11:00 AM EDT [facility] Name Value Range Interpretation Code Description Data [facility] rce(s) Supporting Document(s) HEP A AB, IGM Negative Negative [facility] HEP B SURFACE ANTIGEN SCREEN Negative Negative [facility] HEP B CORE AB, IGM Negative Negative [facility] HCV ANTIBODY <0.1 0.0-0.9 [facility] INFCE Result Units: s/co ratio Negative: < 0.8 Indeterminate: 0.8 - 0.9 Positive: > 0.9 The CDC recommends that a positive HCV antibody result be followed up with a HCV Nucleic Acid Amplification test (390985).Performed at: RN - [facility] [address] [id number] Director: Sepideh Villareal MD, Phone: [phone] ID Date Data Source [id number] 05/17/2020 08:06:00 AM EDT [facility] Name Value [...] with a HCV Nucleic Acid Amplification test ([id number]). ID Date Data Source [id number] 05/14/2020 08:00:00 PM EDT [facility] l TSYSORDER [id number] Name Value Range Interpretation Code Description Data Rosa rce(s) Supporting Document(s) HIV 1/2 AB NON-REACTIVE [facility] HIV AG NON-REACTIVE [facility] ID Date Data Source [id number] 05/14/2020 08:37:00 PM EDT [facility] l TSYSORDER [id number] Name Value Range Interpretation Code Description Data Rosa rce(s) Supporting Document(s) GLUCOSE 124 mg/dL 74-106 H [facility] BLOOD UREA NITROGEN 4 mg/dL 7-18 L [facility] ital CREATININE 0.8 mg/dL 0.7-1.3 [facility] SODIUM 141 mmol/L 136-145 [facility] POTASSIUM 3.8 mmol/L 3.5-5.1 [facility] CHLORIDE 103 mmol/L 98-107 [facility] CO2 27 mmol/L 21-32 [facility] CALCIUM 8.9 mg/dL 8.5-10.1 [facility] ANION GAP 11.0 mmol/L 5-12 [facility] GLOMERULAR FILTRATION RATE >90 mL/min [facility] GFR IS CALCULATED IN mL/min/1.73m2 BENNY L FUNCTION: >90MILDLY DECREASED: 60-89MILDY TO MODERATELY DECREASED: 45-59 MODERATELY TO SEVERELY DECREASED: 30-44SEVERELY DECREASED: 15-29RENAL FAILURE: <15 AST 434 U/L 15-37 *H [facility] ALT 207 U/L 12-78 *H [facility] ALKALINE PHOSPHATASE 192 U/L 46-116 H [facility] pital TOTAL BILIRUBIN 0.6 mg/dL 0.2-1.0 [facility] TOTAL PROTEIN 7.5 g/dl 6.4-8.2 [facility] ALBUMIN 4.1 gm/dL 3.4-5.0 [facility] ID Date Data Source [id number] 05/14/2020 08:10:00 PM EDT [facility] TSYSORDER [id number] Name Value Range Interpretation Code Description Data [facility] Document(s) WHITE BLOOD COUNT 6.2 K/mm3 4.0-10.0 [facility] RED BLOOD COUNT 5.08 M/mm3 4.50-6.00 [facility] HEMOGLOBIN 17.4 gm/dL 14.0-18.0 [facility] HEMATOCRIT 50.1 % 42.0-54.0 [facility] MEAN CELL VOLUME 98.6 fl 80-96 H [facility] MEAN CORPUSCULAR HEMOGLOBIN 34.3 pg 27.0-31.0 H [facility] MEAN CORPUSCULAR HGB CONC 34.7 g/dl 32.0-36.0 [facility] RED CELL DISTRIBUTION WIDTH 14.1 % 10.0-14.5 [facility] PLATELET COUNT 191 K/mm3 172-450 [facility] MEAN PLATELET VOLUME 10.2 fl 9.0-13.0 [facility] pital GRAN % 56.3 % 50-80.0 [facility] IG% 0.0 % 0.0-0.2 [facility] LYMPH % 30.8 % 25.0-50.0 [facility] MONO % 10.9 % 2.0-10.0 H [facility] EOS % 1.4 % 0-5.0 [facility] BASO % 0.6 % 0.0-2.0 [facility] GRAN # 3.5 K/mm3 2.0-8.00 [facility] IG# 0.0 K/mm3 0.0-0.2 [facility] LYMPH # 1.9 K/mm3 1.0-5.0 [facility] MONO # 0.7 K/mm3 0.10-1.20 [facility] EOS # 0.1 K/mm3 0.0-0.5 [facility] BASO # 0.0 K/mm3 0.0-0.2 [facility] Procedure Social History No Information
== END 2021-07-07 13:30 | disposition left against medical advice (07) ==
LOC: M ED 12:51
DX: Z53.21 Procedure and treatment not carried out due to patient leaving prior to being seen by health care provider (principal)

== ENCOUNTER → 2021-07-07 | Outpatient (REF) | payer OTHER ==
[~2021-07-07] MED LIST changes: +FOLI1TAB11 PO; -FOLI1TAB4 PO; +PARO30TA65 PO; +TRAZ-257 PO; -TRAZ10TA PO; +TRAZ1TAB12 PO
[2021-07-07 18:39] LABS: RSV AMPLIFICATION NEGATIVE (NEGATIVE)
== END ==
LOC: M LAB REF 16:44
PROVIDERS: ATTEND Physician Assistant
DX: R50.9 Fever, unspecified (principal); R11.2 Nausea with vomiting, unspecified

== ENCOUNTER → 2021-08-30 | Outpatient (REF) | payer OTHER ==
[2021-08-30 21:34] LABS: BASO % 0.5 % (0.0-1.0); EOS # 0.1 10^3/uL (0.0-0.5); EOS % 2.4 % (0.0-3.0); HEMATOCRIT 35.2 % (42.0-52.0); HEMOGLOBIN 12.8 g/dl (13.5-17.5); LYMPH # 1.9 10^3/uL (1.5-5.0); LYMPH % 32.6 % (24.0-44.0); MEAN CORPUSCULAR HEMOGLOBIN 37.6 pg (27.0-33.0); MEAN CORPUSCULAR HGB CONC 36.4 g/dl (32.0-36.5); MEAN CORPUSCULAR VOLUME 103.5 fl (80.0-96.0); MONO # 0.7 10^3/uL (0.0-0.8); MONO % 11.7 % (2.0-8.0); NEUTROPHILS # 3.1 10^3/uL (1.5-8.5); NEUTROPHILS % 52.5 % (36.0-66.0); PLATELET COUNT, AUTOMATED 195 10^3/uL (150-450); WHITE BLOOD COUNT 5.8 10^3/uL (4.0-10.0)
[2021-08-30 21:52] LABS: ERYTHROCYTE SEDIMENTATION RATE 6 mm/hr (0-15)
[2021-08-30 22:08] LABS: ALBUMIN 3.1 GM/DL (3.2-5.2); ALT/SGPT 116 U/L (12-78); BILIRUBIN,TOTAL 0.7 MG/DL (0.2-1.0); BLOOD UREA NITROGEN 6 MG/DL (7-18); CALCIUM LEVEL 8.9 MG/DL (8.5-10.1); CARBON DIOXIDE LEVEL 31 MEQ/L (21-32); CHLORIDE LEVEL 97 MEQ/L (98-107); CREATININE FOR GFR 0.64 MG/DL (0.70-1.30); GLOMERULAR FILTRATION RATE > 60.0 (>60); GLUCOSE, FASTING 146 MG/DL (70-100); POTASSIUM SERUM 2.7 MEQ/L (3.5-5.1); RHEUMATOID FACTOR QUANT < 10.0 IU/ML (<15.0); SODIUM LEVEL 135 MEQ/L (136-145); TOTAL PROTEIN 6.8 GM/DL (6.4-8.2); URIC ACID 8.2 MG/DL (3.5-7.2)
== END ==
LOC: M LAB REF 21:21
PROVIDERS: ATTEND Physician Assistant
DX: G62.9 Polyneuropathy, unspecified (principal); R53.83 Other fatigue

== ENCOUNTER 2021-10-20 18:18 | Emergency (ER) | payer OTHER ==
[~2021-10-20] VITALS: Ht 177.8 cm; Wt 57.7 kg
[2021-10-20 18:30] VITALS: BP 119/74
[2021-10-20] MEDS ORDERED: FLUO20TA28 PO (18:30)
[2021-10-20] MEDS ORDERED: HYDR-3363 PO (18:30)
== END 2021-10-20 20:32 | disposition home or self-care (01) ==
LOC: M ED 18:18
DX: S93.401A Sprain of unspecified ligament of right ankle, initial encounter (principal); X50.0XXA Overexertion from strenuous movement or load, initial encounter; Y92.9 Unspecified place or not applicable; Y93.9 Activity, unspecified; Y99.0 Civilian activity done for income or pay; F41.9 Anxiety disorder, unspecified; F31.9 Bipolar disorder, unspecified; F17.200 Nicotine dependence, unspecified, uncomplicated; Z88.8 Allergy status to other drugs, medicaments and biological substances

== ENCOUNTER 2022-09-07 18:17 | Emergency (ER) | payer OTHER ==
[~2022-09-07] VITALS: Ht 177.8 cm; Wt 52.3 kg
[~2022-09-07 18:17] MED LIST changes: +FLUO20TA28 PO; +HYDR-3363 PO
[2022-09-07 18:51] VITALS: BP 132/68
[2022-09-07 18:58] LABS: HEMATOCRIT 44.6 % (42.0-52.0); HEMOGLOBIN 14.9 g/dl (13.5-17.5); MEAN CORPUSCULAR HEMOGLOBIN 31.2 pg (27.0-33.0); MEAN CORPUSCULAR HGB CONC 33.4 g/dl (32.0-36.5); MEAN CORPUSCULAR VOLUME 93.5 fl (80.0-96.0); PLATELET COUNT, AUTOMATED 225 10^3/uL (150-450); RED BLOOD COUNT 4.77 10^6/uL (4.30-6.10)
[2022-09-07 19:21] LABS: AMPHETAMINES LEVEL URINE NEGATIVE (NEGATIVE); BARBITURATES URINE NEGATIVE (NEGATIVE); BENZODIAZEPINES URINE NEGATIVE (NEGATIVE); CANNABINOIDS URINE NEGATIVE (NEGATIVE); COCAINE METABOLITE URINE NEGATIVE (NEGATIVE); METHADONE URINE NEGATIVE (NEGATIVE); OPIATES URINE NEGATIVE (NEGATIVE); PHENCYCLIDINE URINE NEGATIVE (NEGATIVE)
[2022-09-07 19:26] LABS: ACETAMINOPHEN LEVEL < 2.0 UG/ML (10.0-20.0); SALICYLATE LEVEL < 3.0 MG/DL (<30)
[2022-09-07 19:29] LABS: ALBUMIN 3.6 G/DL (3.2-5.2); ALKALINE PHOSPHATASE 85 U/L (46-116); ALT/SGPT 33 U/L (7.0-40); AST/SGOT 37 U/L (<34); BILIRUBIN,DIRECT 0.1 MG/DL (<0.4); BILIRUBIN,TOTAL 0.3 MG/DL (0.3-1.2); BLOOD UREA NITROGEN 7 MG/DL (9-23); CALCIUM LEVEL 8.5 MG/DL (8.5-10.1); CARBON DIOXIDE LEVEL 34 MMOL/L (20-31); CHLORIDE LEVEL 103 MMOL/L (98-107); CREATININE FOR GFR 0.55 MG/DL (0.70-1.30); GLOMERULAR FILTRATION RATE > 60.0 (>60); GLUCOSE, FASTING 101 MG/DL (60-100); POTASSIUM SERUM 3.9 MMOL/L (3.5-5.1); SODIUM LEVEL 143 MMOL/L (136-145); THYROID STIMULATING HORMONE 1.387 uIU/ML (0.55-4.78); TOTAL PROTEIN 6.4 G/DL (5.7-8.2)
[2022-09-07 19:41] LABS: ETHYL ALCOHOL (ETHANOL) 0.331 % (0.000-0.010)
[2022-09-07] MEDS ORDERED: NICOTINE 21MG/24HR 1 EA TRANSDERMAL TD ONE (22:00)
== END 2022-09-07 22:40 | disposition home or self-care (01) ==
LOC: M ED 18:17
DX: F32.A Depression, unspecified (principal); F10.10 Alcohol abuse, uncomplicated; F17.200 Nicotine dependence, unspecified, uncomplicated; Z79.899 Other long term (current) drug therapy

== ENCOUNTER 2023-05-18 13:36 | Inpatient (IN) | payer OTHER ==
[~2023-05-18] VITALS: Ht 177.8 cm; Wt 49.8 kg
[~2023-05-18 13:36] MED LIST changes: +ACAM0.05; +ACAM0.05 PO; +SERT25TA21; +SERT25TA21 PO
[2023-05-18] MEDS ORDERED: SERT50TA29 (14:08)
[2023-05-18] MEDS ORDERED: ONDA4TAB6 (14:10)
[2023-05-18] MEDS ORDERED: TRAZ-252 (14:10)
[2023-05-18] MEDS ORDERED: NICO1LOZ11 (14:10)
[2023-05-18 14:52] LABS: HEMATOCRIT 44.3 % (42.0-52.0); HEMOGLOBIN 15.4 g/dl (13.5-17.5); MEAN CORPUSCULAR HEMOGLOBIN 32.4 pg (27.0-33.0); MEAN CORPUSCULAR HGB CONC 34.8 g/dl (32.0-36.5); MEAN CORPUSCULAR VOLUME 93.1 fl (80.0-96.0); PLATELET COUNT, AUTOMATED 248 10^3/uL (150-450); RED BLOOD COUNT 4.76 10^6/uL (4.30-6.10); WHITE BLOOD COUNT 7.2 10^3/uL (4.0-10.0)
[2023-05-18] MEDS ORDERED: NICO4LOZ34 MT (15:23)
[2023-05-18] MEDS ORDERED: ONDA4TAB6 PO (15:27)
[2023-05-18] MEDS ORDERED: SERT-141 PO ×2 (15:27→20:40)
[2023-05-18] MEDS ORDERED: TRAZ-252 PO (15:27)
[2023-05-18] MEDS ORDERED: HYDR1TAB33 PO (15:27)
[2023-05-18] MEDS ORDERED: ACAMPROSATE CALCIUM 333MG TABLET (CAMPRAL) PO STA (16:40)
[2023-05-18] MEDS ORDERED: NICOTINE 21MG/24HR 1 EA TRANSDERMAL TD ONE (16:40)
[2023-05-18] MEDS ORDERED: SERTRALINE HCL 50 MG TAB PO ONE (19:55)
[2023-05-18] MEDS ORDERED: traZODone 50 MG TAB PO ONE (19:55)
[2023-05-18] MEDS ORDERED: HOME MED LIST COMPLETE! XX SCH (20:40)
[2023-05-18] MEDS ORDERED: LORA1TAB23 PO (20:40)
[2023-05-18] MEDS ORDERED: HYDR-3363 PO (20:40)
[2023-05-19] MEDS ORDERED: MOM 30ML SUSPENSION UDC PO PRN (06:45)
[2023-05-19] MEDS ORDERED: MAALOX 30 ML SUSP *UDC PO PRN (06:45)
[2023-05-19] MEDS ORDERED: IBUPROFEN 400MG TAB PO PRN (06:45)
[2023-05-19] MEDS ORDERED: traZODone 50 MG TAB PO PRN (06:45)
[2023-05-19] MEDS: ACETAMINOPHEN TAB 650MG DOSE (2X325MG) PO PRN ×2 (07:18→21:16)
[2023-05-19] MEDS: SERTRALINE HCL 25 MG TABLET PO SCH ×2 (07:19→21:15)
[2023-05-19] MEDS: ACAMPROSATE CALCIUM 333MG TABLET (CAMPRAL) PO SCH ×3 (07:40→21:15)
[2023-05-19] MEDS: NICOTINE 14 MG/24 HR TRANSDERMAL TD SCH (09:00)
[2023-05-19] MEDS: OLANZapine ORAL DISINTEGRATING TAB 5MG PO PRN ×2 (10:05→16:06)
[2023-05-19] MEDS: diphenhydrAMINE 25MG CAP PO PRN (10:05)
[2023-05-19 10:10] VITALS: BP 151/94; TEMP 98; O2SAT 96
[2023-05-19 11:34] LABS: AMPHETAMINES LEVEL URINE NEGATIVE (NEGATIVE); BARBITURATES URINE NEGATIVE (NEGATIVE); BENZODIAZEPINES URINE NEGATIVE (NEGATIVE); CANNABINOIDS URINE NEGATIVE (NEGATIVE); COCAINE METABOLITE URINE NEGATIVE (NEGATIVE); OPIATES URINE NEGATIVE (NEGATIVE); PHENCYCLIDINE URINE NEGATIVE (NEGATIVE)
[2023-05-19 11:35] LABS: ETHYL ALCOHOL (ETHANOL) 0.32 % (0.00-0.01); SALICYLATE LEVEL < 3.0 MG/DL (2.0-20.0)
[2023-05-19 11:39] LABS: ALKALINE PHOSPHATASE 119 U/L (40-129); ALT/SGPT 68 U/L (1-41); AST/SGOT 107 U/L (5-40); BILIRUBIN,DIRECT < 0.2 MG/DL (0.1-0.4); BILIRUBIN,TOTAL < 0.7 MG/DL (0.2-1.3); BLOOD UREA NITROGEN 4 MG/DL (7-21); CALCIUM LEVEL 9.1 MG/DL (8.4-10.2); CARBON DIOXIDE LEVEL 27 MEQ/L (22-30); CHLORIDE LEVEL 100 MEQ/L (98-107); CREATININE FOR GFR 0.5 MG/DL (0.7-1.5); GLOMERULAR FILTRATION RATE > 60.0 (>60); GLUCOSE, FASTING 128 MG/DL (70-99); SODIUM LEVEL 142 MEQ/L (134-153)
[2023-05-19 11:40] LABS: TOTAL PROTEIN 7.6 G/DL (6.3-8.2)
[2023-05-19 14:00] VITALS: BP 151/94
[2023-05-19] MEDS ORDERED: LORazepam 2 MG TAB PO PRN (15:55)
[2023-05-19] MEDS: THIAMINE 100 MG TAB PO SCH (21:15)
[2023-05-19 21:21] VITALS: BP 150/100
[2023-05-19 22:55] VITALS: BP 130/70
[2023-05-20 05:16] VITALS: BP 125/76; TEMP 97.8; O2SAT 97
[2023-05-20 05:46] VITALS: BP 125/76
[2023-05-20] MEDS: SERTRALINE HCL 25 MG TABLET PO SCH (08:29)
[2023-05-20] MEDS: ACAMPROSATE CALCIUM 333MG TABLET (CAMPRAL) PO SCH (08:29)
[2023-05-20] MEDS: NICOTINE 14 MG/24 HR TRANSDERMAL TD SCH (08:29)
[2023-05-20] MEDS ORDERED: FOLIC ACID 1MG TAB PO SCH (09:00)
[2023-05-20] MEDS ORDERED: MULTIVITAMINS/MINERALS THERAP 1 TAB PO SCH (09:00)
[2023-05-20] MEDS: diphenhydrAMINE 25MG CAP PO PRN (10:08)
[2023-05-20] MEDS: OLANZapine ORAL DISINTEGRATING TAB 5MG PO PRN (10:08)
[2023-05-20] MEDS: THIAMINE 100 MG TAB PO SCH (10:09)
== END 2023-05-20 12:39 | disposition home or self-care (01) | DRG 756 ==
LOC: M ED 13:36 → M ED INP 05-19 06:41 → M PSY 05-19 09:07
PROVIDERS: ADMIT Psychiatry & Neurology Psychiatry; ATTEND Student in an Organized Health Care Education/Training Program
DX: F41.9 Anxiety disorder, unspecified (principal); F10.129 Alcohol abuse with intoxication, unspecified; Z63.4 Disappearance and death of family member; F17.210 Nicotine dependence, cigarettes, uncomplicated; I10 Essential (primary) hypertension; Z59.02 Unsheltered homelessness

== ENCOUNTER 2023-06-15 06:06 | Emergency (ER) | payer MEDICAID, OTHER ==
[~2023-06-15] VITALS: Ht 177.8 cm; Wt 54.4 kg
[~2023-06-15 06:06] MED LIST changes: +HYDR1TAB33 PO; +LORA1TAB23 PO; +NICO1LOZ11; +NICO4LOZ34 MT; +ONDA4TAB6; +ONDA4TAB6 PO; +SERT-141 PO; +SERT50TA29; +TRAZ-252; +TRAZ-252 PO
[2023-06-15] MEDS ORDERED: NICOTINE 21MG/24HR 1 EA TRANSDERMAL TD ONE (06:50)
[2023-06-15 07:02] LABS: HEMATOCRIT 42.6 % (42.0-52.0); HEMOGLOBIN 14.3 g/dl (13.5-17.5); MEAN CORPUSCULAR HEMOGLOBIN 32.4 pg (27.0-33.0); MEAN CORPUSCULAR HGB CONC 33.6 g/dl (32.0-36.5); MEAN CORPUSCULAR VOLUME 96.6 fl (80.0-96.0); PLATELET COUNT, AUTOMATED 227 10^3/uL (150-450); RED BLOOD COUNT 4.41 10^6/uL (4.30-6.10); WHITE BLOOD COUNT 9.4 10^3/uL (4.0-10.0)
[2023-06-15 07:14] LABS: AMPHETAMINES LEVEL URINE NEGATIVE (NEGATIVE); BARBITURATES URINE NEGATIVE (NEGATIVE); BENZODIAZEPINES URINE NEGATIVE (NEGATIVE); COCAINE METABOLITE URINE NEGATIVE (NEGATIVE); METHADONE URINE NEGATIVE (NEGATIVE); OPIATES URINE NEGATIVE (NEGATIVE); PHENCYCLIDINE URINE NEGATIVE (NEGATIVE)
[2023-06-15 07:15] LABS: CANNABINOIDS URINE POSITIVE (NEGATIVE)
[2023-06-15 07:16] LABS: ALBUMIN 3.4 G/DL (3.2-5.2); ALKALINE PHOSPHATASE 147 U/L (46-116); ALT/SGPT 23 U/L (7.0-40); AST/SGOT 30 U/L (<34); BILIRUBIN,DIRECT < 0.1 MG/DL (<0.4); BILIRUBIN,TOTAL 0.2 MG/DL (0.3-1.2); BLOOD UREA NITROGEN 6 MG/DL (9-23); CALCIUM LEVEL 8.3 MG/DL (8.5-10.1); CARBON DIOXIDE LEVEL 30 MMOL/L (20-31); CHLORIDE LEVEL 105 MMOL/L (98-107); CREATININE FOR GFR 0.55 MG/DL (0.70-1.30); GLOMERULAR FILTRATION RATE > 60.0 (>60); GLUCOSE, FASTING 125 MG/DL (60-100); SALICYLATE LEVEL < 3.0 MG/DL (<30); SODIUM LEVEL 143 MMOL/L (136-145); TOTAL PROTEIN 6.6 G/DL (5.7-8.2)
[2023-06-15 07:19] LABS: THYROID STIMULATING HORMONE 3.547 uIU/ML (0.55-4.78)
[2023-06-15] MEDS ORDERED: ACETAMINOPHEN TAB 650MG DOSE (2X325MG) PO ONE (16:40)
[2023-06-15] MEDS ORDERED: SERTRALINE HCL 25 MG TABLET PO ONE (17:00)
[2023-06-15] MEDS ORDERED: ACAMPROSATE CALCIUM 333MG TABLET (CAMPRAL) PO SCH (17:00)
[2023-06-15] MEDS ORDERED: SERTRALINE HCL 25 MG TABLET PO SCH (17:00)
[2023-06-15 18:45] VITALS: BP 144/91; TEMP 98.1; O2SAT 97
== END 2023-06-15 18:55 | disposition home or self-care (01) ==
LOC: M ED 06:06
DX: R41.82 Altered mental status, unspecified (principal); F10.929 Alcohol use, unspecified with intoxication, unspecified; F17.210 Nicotine dependence, cigarettes, uncomplicated; Z88.8 Allergy status to other drugs, medicaments and biological substances; Z79.899 Other long term (current) drug therapy

== ENCOUNTER 2023-07-08 11:05 | Inpatient (IN) | payer OTHER ==
[~2023-07-08] VITALS: Ht 177.8 cm; Wt 55.9 kg
[2023-07-08 12:43] LABS: HEMATOCRIT 50.6 % (42.0-52.0); HEMOGLOBIN 17.3 g/dl (13.5-17.5); MEAN CORPUSCULAR HEMOGLOBIN 32.8 pg (27.0-33.0); MEAN CORPUSCULAR HGB CONC 34.2 g/dl (32.0-36.5); MEAN CORPUSCULAR VOLUME 95.8 fl (80.0-96.0); PLATELET COUNT, AUTOMATED 239 10^3/uL (150-450); RED BLOOD COUNT 5.28 10^6/uL (4.30-6.10); WHITE BLOOD COUNT 11.1 10^3/uL (4.0-10.0)
[2023-07-08 13:16] LABS: SALICYLATE LEVEL < 3.0 MG/DL (<30)
[2023-07-08 13:17] LABS: ALBUMIN 4.1 G/DL (3.2-5.2); ALKALINE PHOSPHATASE 187 U/L (46-116); ALT/SGPT 26 U/L (7.0-40); AST/SGOT 51 U/L (<34); BILIRUBIN,DIRECT 0.3 MG/DL (<0.4); BILIRUBIN,TOTAL 0.7 MG/DL (0.3-1.2); BLOOD UREA NITROGEN 9 MG/DL (9-23); CALCIUM LEVEL 8.5 MG/DL (8.5-10.1); CARBON DIOXIDE LEVEL 22 MMOL/L (20-31); CHLORIDE LEVEL 101 MMOL/L (98-107); GLOMERULAR FILTRATION RATE > 60.0 (>60); GLUCOSE, FASTING 92 MG/DL (60-100); SODIUM LEVEL 139 MMOL/L (136-145); TOTAL PROTEIN 7.7 G/DL (5.7-8.2)
[2023-07-08 13:18] LABS: THYROID STIMULATING HORMONE 0.727 uIU/ML (0.55-4.78)
[2023-07-08] MEDS ORDERED: NICOTINE 21MG/24HR 1 EA TRANSDERMAL TD ONE (13:30)
[2023-07-08 13:55] LABS: ETHYL ALCOHOL (ETHANOL) 0.437 % (0.000-0.010)
[2023-07-08] MEDS ORDERED: MED REC IN PROGRESS XX SCH (14:30)
[2023-07-08 15:46] LABS: AMPHETAMINES LEVEL URINE NEGATIVE (NEGATIVE); BARBITURATES URINE NEGATIVE (NEGATIVE); BENZODIAZEPINES URINE NEGATIVE (NEGATIVE); COCAINE METABOLITE URINE NEGATIVE (NEGATIVE); METHADONE URINE NEGATIVE (NEGATIVE); OPIATES URINE NEGATIVE (NEGATIVE); PHENCYCLIDINE URINE NEGATIVE (NEGATIVE)
[2023-07-08 15:48] LABS: CANNABINOIDS URINE POSITIVE (NEGATIVE)
[2023-07-08] MEDS ORDERED: NICO1LOZ11 PO (16:07)
[2023-07-08] MEDS ORDERED: HOME MED LIST COMPLETE! XX SCH (16:10)
[2023-07-08] MEDS: THIAMINE 100 MG TAB PO SCH (20:16)
[2023-07-08] MEDS: LORazepam 2 MG TAB PO PRN ×2 (20:17→21:35)
[2023-07-08 21:45] LABS: BLOOD UREA NITROGEN 11 MG/DL (9-23); CALCIUM LEVEL 8.6 MG/DL (8.5-10.1); CARBON DIOXIDE LEVEL 25 MMOL/L (20-31); CHLORIDE LEVEL 99 MMOL/L (98-107); CK-MB VALUE MASS 1.1 NG/ML (<3.6); CPK CREATINE PHOSPHOKINASE 243 U/L (46-171); CREATININE FOR GFR 0.55 MG/DL (0.70-1.30); GLOMERULAR FILTRATION RATE > 60.0 (>60); GLUCOSE, FASTING 150 MG/DL (60-100); MB/CK RELATIVE INDEX 0.45 (< OR =4); POTASSIUM SERUM 4.4 MMOL/L (3.5-5.1); SODIUM LEVEL 136 MMOL/L (136-145)
[2023-07-08 21:47] LABS: ETHYL ALCOHOL (ETHANOL) 0.139 % (0.000-0.010)
[2023-07-08] MEDS ORDERED: OXAZEPAM 15MG CAP PO ONE (21:50)
[2023-07-08] MEDS ORDERED: NICOTINE POLACRILEX 2 MG GUM PO ONE (22:50)
[2023-07-09] MEDS: LORazepam 2 MG TAB PO PRN ×2 (00:24→14:56)
[2023-07-09] MEDS ORDERED: traZODone 50 MG TAB PO PRN ×2 (07:25→13:30)
[2023-07-09] MEDS: ACAMPROSATE CALCIUM 333MG TABLET (CAMPRAL) PO SCH ×3 (08:47→21:23)
[2023-07-09] MEDS: THIAMINE 100 MG TAB PO SCH ×2 (08:47→21:23)
[2023-07-09] MEDS: SERTRALINE HCL 25 MG TABLET PO SCH ×2 (08:47→21:23)
[2023-07-09] MEDS ORDERED: MULTIVITAMINS/MINERALS THERAP 1 TAB PO SCH (09:00)
[2023-07-09] MEDS ORDERED: FOLIC ACID 1MG TAB PO SCH (09:00)
[2023-07-09] MEDS ORDERED: MOM 30ML SUSPENSION UDC PO PRN (13:30)
[2023-07-09] MEDS: NICOTINE POLACRILEX 2 MG GUM PO PRN ×2 (14:01→21:26)
[2023-07-09 17:00] VITALS: BP 140/95; TEMP 99.4; O2SAT 97
[2023-07-09 18:45] VITALS: BP 140/95
[2023-07-10] VITALS (8 sets, daily range): BP systolic 101–154; BP diastolic 50–96; TEMP 97.8–99; O2SAT 97–100
[2023-07-10] MEDS: LORazepam 2 MG TAB PO PRN ×2 (05:38→09:44)
[2023-07-10] MEDS ORDERED: traZODone 50 MG TAB PO PRN (08:55)
[2023-07-10] MEDS ORDERED: SERTRALINE HCL 50 MG TAB PO SCH (09:00)
[2023-07-10] MEDS: SERTRALINE 100 MG TAB PO SCH (09:43)
[2023-07-10] MEDS: MULTIVITAMINS/MINERALS THERAP 1 TAB PO SCH (09:43)
[2023-07-10] MEDS: FOLIC ACID 1MG TAB PO SCH (09:43)
[2023-07-10] MEDS: ACAMPROSATE CALCIUM 333MG TABLET (CAMPRAL) PO SCH ×3 (09:44→21:02)
[2023-07-10] MEDS: THIAMINE 100 MG TAB PO SCH ×2 (09:45→21:02)
[2023-07-10] MEDS: NICOTINE POLACRILEX 2 MG GUM PO PRN ×2 (09:47→17:55)
[2023-07-10] MEDS: chlordiazePOXIDE 25 MG CAP PO SCH ×3 (11:15→21:03)
[2023-07-10] MEDS: OLANZapine ORAL DISINTEGRATING TAB 5MG PO PRN (17:54)
[2023-07-10] MEDS: traZODone 50 MG TAB PO PRN (21:03)
[2023-07-10] MEDS: IBUPROFEN 400MG TAB PO PRN (21:03)
[2023-07-11 06:40] VITALS: BP 118/58; TEMP 98.3; O2SAT 97
[2023-07-11 06:53] VITALS: BP 118/58
[2023-07-11] MEDS: chlordiazePOXIDE 25 MG CAP PO SCH ×3 (08:17→21:10)
[2023-07-11] MEDS: FOLIC ACID 1MG TAB PO SCH (08:18)
[2023-07-11] MEDS: THIAMINE 100 MG TAB PO SCH (08:18)
[2023-07-11] MEDS: ACAMPROSATE CALCIUM 333MG TABLET (CAMPRAL) PO SCH ×3 (08:18→21:10)
[2023-07-11] MEDS: SERTRALINE 100 MG TAB PO SCH (08:18)
[2023-07-11] MEDS: MULTIVITAMINS/MINERALS THERAP 1 TAB PO SCH (08:18)
[2023-07-11] MEDS: diphenhydrAMINE 25MG CAP PO PRN (11:55)
[2023-07-11] MEDS: IBUPROFEN 400MG TAB PO PRN (11:55)
[2023-07-11] MEDS: NICOTINE POLACRILEX 2 MG GUM PO PRN ×2 (11:56→21:12)
[2023-07-11 14:18] VITALS: BP 140/80
[2023-07-11] MEDS: LORazepam 2 MG TAB PO PRN (14:21)
[2023-07-11] MEDS: ACETAMINOPHEN TAB 650MG DOSE (2X325MG) PO PRN ×2 (14:22→21:10)
[2023-07-11 15:38] VITALS: BP 135/83
[2023-07-11 17:02] VITALS: BP 116/61
[2023-07-11 17:26] VITALS: BP 136/87; TEMP 98.1; O2SAT 99
[2023-07-11] MEDS: traZODone 50 MG TAB PO PRN (21:09)
[2023-07-11] MEDS: PILL CUTTER 1 EACH XX PRN (21:09)
[2023-07-12 06:13] VITALS: BP 117/68
[2023-07-12 06:36] VITALS: BP 117/68; TEMP 97.5; O2SAT 96
[2023-07-12] MEDS: MULTIVITAMINS/MINERALS THERAP 1 TAB PO SCH (08:59)
[2023-07-12] MEDS: SERTRALINE 100 MG TAB PO SCH (08:59)
[2023-07-12] MEDS: ACAMPROSATE CALCIUM 333MG TABLET (CAMPRAL) PO SCH ×3 (08:59→21:27)
[2023-07-12] MEDS: FOLIC ACID 1MG TAB PO SCH (08:59)
[2023-07-12] MEDS: chlordiazePOXIDE 25 MG CAP PO SCH ×2 (08:59→21:27)
[2023-07-12] MEDS: NICOTINE POLACRILEX 2 MG GUM PO PRN ×3 (09:03→22:45)
[2023-07-12] MEDS: OLANZapine ORAL DISINTEGRATING TAB 5MG PO PRN (12:57)
[2023-07-12 15:43] VITALS: BP 136/76
[2023-07-12] MEDS: diphenhydrAMINE 25MG CAP PO PRN ×2 (15:47→22:46)
[2023-07-12 16:36] VITALS: BP 128/79; TEMP 98; O2SAT 96
[2023-07-12] MEDS: ACETAMINOPHEN TAB 650MG DOSE (2X325MG) PO PRN (21:28)
[2023-07-12] MEDS: traZODone 50 MG TAB PO PRN (22:45)
[2023-07-13 06:13] VITALS: BP 121/71; TEMP 98; O2SAT 99
[2023-07-13] MEDS: FOLIC ACID 1MG TAB PO SCH (08:47)
[2023-07-13] MEDS: ACAMPROSATE CALCIUM 333MG TABLET (CAMPRAL) PO SCH ×3 (08:47→21:21)
[2023-07-13] MEDS: MULTIVITAMINS/MINERALS THERAP 1 TAB PO SCH (08:47)
[2023-07-13] MEDS: SERTRALINE 100 MG TAB PO SCH (08:48)
[2023-07-13] MEDS ORDERED: chlordiazePOXIDE 25 MG CAP PO ONE (09:00)
[2023-07-13] MEDS: NICOTINE POLACRILEX 2 MG GUM PO PRN ×2 (15:31→21:21)
[2023-07-13 16:36] VITALS: BP 137/78; TEMP 98.3; O2SAT 96
[2023-07-13] MEDS: MAALOX 30 ML SUSP *UDC PO PRN (17:16)
[2023-07-13] MEDS: PILL CUTTER 1 EACH XX PRN (21:21)
[2023-07-13] MEDS: traZODone 50 MG TAB PO PRN (21:22)
[2023-07-13] MEDS: ACETAMINOPHEN TAB 650MG DOSE (2X325MG) PO PRN (21:22)
[2023-07-14 06:47] VITALS: BP 120/77; TEMP 97.9; O2SAT 97
[2023-07-14] MEDS: NICOTINE POLACRILEX 2 MG GUM PO PRN ×2 (08:23→20:09)
[2023-07-14] MEDS: SERTRALINE 100 MG TAB PO SCH (08:23)
[2023-07-14] MEDS: ACAMPROSATE CALCIUM 333MG TABLET (CAMPRAL) PO SCH ×3 (08:23→20:06)
[2023-07-14] MEDS: MULTIVITAMINS/MINERALS THERAP 1 TAB PO SCH (08:24)
[2023-07-14] MEDS: FOLIC ACID 1MG TAB PO SCH (08:24)
[2023-07-14] MEDS: ACETAMINOPHEN TAB 650MG DOSE (2X325MG) PO PRN ×2 (08:24→20:07)
[2023-07-14] MEDS: MAALOX 30 ML SUSP *UDC PO PRN ×3 (10:33→23:37)
[2023-07-14 18:13] VITALS: BP 145/96; TEMP 98.8; O2SAT 98
[2023-07-14] MEDS: diphenhydrAMINE 25MG CAP PO PRN (21:33)
[2023-07-14] MEDS: IBUPROFEN 400MG TAB PO PRN (21:34)
[2023-07-14 21:36] VITALS: BP 139/90
[2023-07-14] MEDS: traZODone 50 MG TAB PO PRN (23:33)
[2023-07-14] MEDS: PILL CUTTER 1 EACH XX PRN (23:34)
[2023-07-14] MEDS: OLANZapine ORAL DISINTEGRATING TAB 5MG PO PRN (23:34)
[2023-07-15 06:26] VITALS: BP 130/77; TEMP 97.3; O2SAT 97
[2023-07-15] MEDS ORDERED: ZOLO100T PO (08:51)
[2023-07-15] MEDS ORDERED: TRAZ-252 PO (08:51)
[2023-07-15] MEDS: FOLIC ACID 1MG TAB PO SCH (09:09)
[2023-07-15] MEDS: MULTIVITAMINS/MINERALS THERAP 1 TAB PO SCH (09:10)
[2023-07-15] MEDS: SERTRALINE 100 MG TAB PO SCH (09:10)
[2023-07-15] MEDS: ACAMPROSATE CALCIUM 333MG TABLET (CAMPRAL) PO SCH (09:10)
[2023-07-15] MEDS: NICOTINE POLACRILEX 2 MG GUM PO PRN (09:12)
[2023-07-15] MEDS: ACETAMINOPHEN TAB 650MG DOSE (2X325MG) PO PRN (09:13)
[2023-07-15] MEDS: MAALOX 30 ML SUSP *UDC PO PRN (09:57)
[2023-07-15] MEDS: diphenhydrAMINE 25MG CAP PO PRN (09:57)
[2023-07-15] MEDS: OLANZapine ORAL DISINTEGRATING TAB 5MG PO PRN (09:57)
== END 2023-07-15 13:46 | disposition home or self-care (01) | DRG 754 ==
LOC: M ED 11:05 → M ED INP 07-09 13:29 → M PSY 07-09 16:27
PROVIDERS: ADMIT Student in an Organized Health Care Education/Training Program; ATTEND Student in an Organized Health Care Education/Training Program
DX: F32.A Depression, unspecified (principal); F41.9 Anxiety disorder, unspecified; F10.229 Alcohol dependence with intoxication, unspecified; Z79.899 Other long term (current) drug therapy; Z88.8 Allergy status to other drugs, medicaments and biological substances; F17.210 Nicotine dependence, cigarettes, uncomplicated; F10.239 Alcohol dependence with withdrawal, unspecified; Z63.4 Disappearance and death of family member; Z59.00 Homelessness unspecified

== ENCOUNTER → 2023-10-24 | Outpatient (CLI) | payer OTHER ==
[~2023-10-24] MED LIST changes: +NICO1LOZ11 PO; +ZOLO100T PO
== END ==
LOC: M OUTALCOH 07:47
PROVIDERS: ATTEND Psychiatry & Neurology Psychiatry
DX: F10.20 Alcohol dependence, uncomplicated (principal); F17.200 Nicotine dependence, unspecified, uncomplicated

== ENCOUNTER 2023-11-22 10:57 | Outpatient (RCR) | payer OTHER | END 2023-11-26 | LOC: M OUTALCOH 10:57 | PROVIDERS: ATTEND Psychiatry & Neurology Psychiatry | DX: F10.20 Alcohol dependence, uncomplicated (principal); F17.200 Nicotine dependence, unspecified, uncomplicated ==

== ENCOUNTER 2023-12-26 16:00 | Outpatient (RCR) | payer OTHER | END 2023-12-27 | LOC: M OUTALCOH 16:00 | PROVIDERS: ATTEND Psychiatry & Neurology Psychiatry | DX: F10.20 Alcohol dependence, uncomplicated (principal); F17.200 Nicotine dependence, unspecified, uncomplicated ==

== ENCOUNTER 2024-01-23 11:00 | Outpatient (RCR) | payer OTHER ==
[~2024-01-23 11:00] MED LIST changes: +ONDA-282; +ONDA-282 PO; -ONDA4TAB6; -ONDA4TAB6 PO
== END 2024-01-26 ==
LOC: M OUTALCOH 11:00
PROVIDERS: ATTEND Psychiatry & Neurology Psychiatry
DX: F10.20 Alcohol dependence, uncomplicated (principal); F17.200 Nicotine dependence, unspecified, uncomplicated

== ENCOUNTER 2024-02-20 16:00 | Outpatient (RCR) | payer OTHER | END 2024-02-26 | LOC: M OUTALCOH 16:00 | PROVIDERS: ATTEND Psychiatry & Neurology Psychiatry | DX: F10.20 Alcohol dependence, uncomplicated (principal); F17.200 Nicotine dependence, unspecified, uncomplicated ==

== ENCOUNTER 2024-03-05 16:00 | Outpatient (RCR) | payer OTHER | END 2024-03-28 | LOC: M OUTALCOH 16:00 | PROVIDERS: ATTEND Psychiatry & Neurology Psychiatry | DX: F10.20 Alcohol dependence, uncomplicated (principal); F17.200 Nicotine dependence, unspecified, uncomplicated ==

== ENCOUNTER → 2024-07-20 | Outpatient (CLI) | payer OTHER | LOC: M OUTALCOH 07:36 | PROVIDERS: ATTEND Psychiatry & Neurology Psychiatry | DX: F10.20 Alcohol dependence, uncomplicated (principal); F17.200 Nicotine dependence, unspecified, uncomplicated ==

== ENCOUNTER 2024-08-13 09:00 | Outpatient (RCR) | payer OTHER | END 2024-08-28 | LOC: M OUTALCOH 09:00 | PROVIDERS: ATTEND Psychiatry & Neurology Psychiatry | DX: F10.20 Alcohol dependence, uncomplicated (principal); F17.200 Nicotine dependence, unspecified, uncomplicated ==

== ENCOUNTER 2024-09-17 10:00 | Outpatient (RCR) | payer OTHER | END 2024-09-25 | LOC: M OUTALCOH 10:00 | PROVIDERS: ATTEND Psychiatry & Neurology Psychiatry | DX: F10.20 Alcohol dependence, uncomplicated (principal); F17.200 Nicotine dependence, unspecified, uncomplicated ==

== ENCOUNTER 2024-10-09 09:00 | Outpatient (RCR) | payer OTHER | END 2024-10-26 | LOC: M OUTALCOH 09:00 | PROVIDERS: ATTEND Psychiatry & Neurology Psychiatry | DX: F10.20 Alcohol dependence, uncomplicated (principal); F17.200 Nicotine dependence, unspecified, uncomplicated ==

== ENCOUNTER 2024-11-18 11:27 | Emergency (ER) | payer OTHER ==
[~2024-11-18] VITALS: Ht 177.8 cm; Wt 55.0 kg
[~2024-11-18 11:27] MED LIST changes: +FLUO1TAB4 PO; -FLUO20TA28 PO
[2024-11-18 12:00] LABS: BASO # 0.1 10^3/uL (0.0-0.2); BASO % 0.5 % (0.0-1.0); EOS # 0.1 10^3/uL (0.0-0.5); EOS % 1.4 % (0.0-3.0); HEMATOCRIT 43.6 % (42.0-52.0); LYMPH # 1.9 10^3/uL (1.5-5.0); LYMPH % 19.4 % (24.0-44.0); MEAN CORPUSCULAR HEMOGLOBIN 31.2 pg (27.0-33.0); MEAN CORPUSCULAR HGB CONC 34.4 g/dl (32.0-36.5); MEAN CORPUSCULAR VOLUME 90.6 fl (80.0-96.0); MONO # 0.7 10^3/uL (0.0-0.8); MONO % 6.9 % (2.0-8.0); NEUTROPHILS % 71.5 % (36.0-66.0); PLATELET COUNT, AUTOMATED 263 10^3/uL (150-450); RED BLOOD COUNT 4.81 10^6/uL (4.30-6.10); WHITE BLOOD COUNT 9.8 10^3/uL (4.0-10.0)
[2024-11-18 12:14] LABS: ERYTHROCYTE SEDIMENTATION RATE 4 mm/hr (0-15)
[2024-11-18 12:29] LABS: LIPASE 32 U/L (12-53)
[2024-11-18 12:31] LABS: ALBUMIN 4.1 G/DL (3.2-5.2); ALKALINE PHOSPHATASE 51 U/L (40-129); ALT/SGPT 33 U/L (7.0-40); AST/SGOT 28 U/L (<34); BILIRUBIN,DIRECT < 0.1 MG/DL (<0.4); BILIRUBIN,TOTAL 0.3 MG/DL (0.3-1.2); BLOOD UREA NITROGEN 14 MG/DL (9-23); CALCIUM LEVEL 8.4 MG/DL (8.5-10.1); CARBON DIOXIDE LEVEL 27 MMOL/L (20-31); CHLORIDE LEVEL 104 MMOL/L (98-107); CK-MB VALUE MASS < 1.0 NG/ML (<3.6); CREATININE FOR GFR 0.43 MG/DL (0.70-1.30); GLOMERULAR FILTRATION RATE > 90.0 (>60); GLUCOSE, FASTING 86 MG/DL (60-100); POTASSIUM SERUM 4.8 MMOL/L (3.5-5.1); SODIUM LEVEL 139 MMOL/L (136-145); TOTAL PROTEIN 6.8 G/DL (5.7-8.2)
[2024-11-18 12:33] LABS: THYROID STIMULATING HORMONE 1.804 uIU/ML (0.55-4.78)
[2024-11-18 12:34] LABS: CPK CREATINE PHOSPHOKINASE 67 U/L (46-171); MB/CK RELATIVE INDEX 1.49 (< OR =4)
[2024-11-18] MEDS ORDERED: PROT1TAB2 PO (12:45)
[2024-11-18] MEDS ORDERED: SUCR1SS PO (12:45)
[2024-11-18] MEDS: KETOROLAC 30 MG/ML 1ML VIAL IV ONE (12:49)
[2024-11-18] MEDS: SUCRALFATE SUSP 1GM/10ML UD PO ONE (12:49)
[2024-11-18] MEDS: PANTOPRAZOLE 40MG TAB (PROTONIX) PO ONE (12:49)
[2024-11-18 13:24] VITALS: BP 153/92; TEMP 98.1; O2SAT 99
== END 2024-11-18 13:27 | disposition home or self-care (01) ==
LOC: M ED 11:27 → EDBD 11:27 → M ED 13:27
DX: R07.9 Chest pain, unspecified (principal); R10.13 Epigastric pain; F41.9 Anxiety disorder, unspecified; Z88.8 Allergy status to other drugs, medicaments and biological substances; Z79.899 Other long term (current) drug therapy
CPT/HCPCS: 70450; 71045; 80048; 80076; 82550; 82553; 83690; 84443; 84484; 85025; 85379; 85652; 93005; 93041; 94760; 96374; 99284; J1885

== ENCOUNTER → 2025-04-20 | Outpatient (CLI) | payer OTHER ==
[~2025-04-20] MED LIST changes: +PROT1TAB2 PO; +SUCR1SS PO
== END ==
LOC: M OUTALCOH 08:01
PROVIDERS: ATTEND Psychiatry & Neurology Psychiatry
DX: F10.20 Alcohol dependence, uncomplicated (principal); F12.20 Cannabis dependence, uncomplicated; F17.200 Nicotine dependence, unspecified, uncomplicated

== ENCOUNTER 2025-04-23 08:47 | Outpatient (RCR) | payer OTHER | END 2025-04-27 | LOC: M OUTALCOH 08:47 | PROVIDERS: ATTEND Psychiatry & Neurology Psychiatry | DX: F10.20 Alcohol dependence, uncomplicated (principal); F17.200 Nicotine dependence, unspecified, uncomplicated ==

== ENCOUNTER → 2025-05-28 | Outpatient (RCR) | payer MEDICAID, OTHER | LOC: M OUTALCOH 04-29 09:15 | PROVIDERS: ATTEND Psychiatry & Neurology Psychiatry | DX: F10.20 Alcohol dependence, uncomplicated (principal); F12.20 Cannabis dependence, uncomplicated; F17.200 Nicotine dependence, unspecified, uncomplicated | CPT/HCPCS: G0397 ×5 ==

== ENCOUNTER 2025-06-18 13:00 | Outpatient (RCR) | payer MEDICAID | END 2025-06-27 | LOC: M OUTALCOH 13:00 | PROVIDERS: ATTEND Psychiatry & Neurology Psychiatry | DX: F10.20 Alcohol dependence, uncomplicated (principal); F12.20 Cannabis dependence, uncomplicated; F17.200 Nicotine dependence, unspecified, uncomplicated | CPT/HCPCS: G0397 ×2 ==

== ENCOUNTER 2025-07-26 13:54 | Outpatient (RCR) | payer MEDICAID, OTHER | END 2025-07-28 | LOC: M OUTALCOH 13:54 | PROVIDERS: ATTEND Psychiatry & Neurology Psychiatry | DX: F10.20 Alcohol dependence, uncomplicated (principal); F12.20 Cannabis dependence, uncomplicated; F17.200 Nicotine dependence, unspecified, uncomplicated ==